=== PATIENT | female | born 1980 | race Caucasian/White ===

== ENCOUNTER → 2022-11-10 09:45 | Outpatient (CLI) | payer OTHER, SELFPAY ==
--- NOTE | ~2022-11-10 | MM_ITS ---
EXAMINATION: MM screening carie BI w chuy HISTORY: Screening mammogram TECHNIQUE: Craniocaudal and mediolateral oblique 3-D tomosynthesis images were obtained and synthetic 2-D images were generated. CAD analysis was submitted and interpreted. COMPARISON: None, baseline BREAST PARENCHYMAL COMPOSITION: There are scattered areas of fibroglandular density. FINDINGS: RIGHT BREAST: An asymmetry is present in the posterior third outer breast craniocaudal view. LEFT BREAST: There is focal asymmetry in the middle third of the upper-outer quadrant of the breast. IMPRESSION: 1. Bilateral breast findings as above. 2. Additional mammographic views and possible breast ultrasound are recommended to evaluate the descr ibed findings and establish a baseline given that this is the first mammographic examination. BI-RADS Category 0: Incomplete: Needs additional imaging evaluation. Reviewed, dictated and finalized at location A. IMPRESSION: 1. Bilateral breast findings as above. 2. Additional mammographic views and possible breast ultrasound are recommended to evaluate the described findings and establish a baseline given that this is the first mammographic examination. BI-RADS Category 0: Incomplete: Needs additional imaging evaluation.
== END ==
PROVIDERS: PCP Family Medicine; Visit Provider Family Medicine
DX: Z12.31 Encounter for screening mammogram for malignant neoplasm of breast (principal); R92.8 Other abnormal and inconclusive findings on diagnostic imaging of breast
CPT/HCPCS: 77063; 77067

== ENCOUNTER → 2023-04-06 08:47 | Outpatient (CLI) | payer OTHER, SELFPAY ==
--- NOTE | ~2023-04-06 | MMUS_ITS ---
EXAMINATION: MM diagnostic carie BI w chuy, US breast BI limited HISTORY: Follow-up breast asymmetries TECHNIQUE: Additional 3-D tomosynthesis images of the breasts were performed and synthetic 2-D images were generated. CAD analysis was submitted and interpreted. High resolution limited bilateral breast ultrasound was performed. COMPARISON: 11/10/2022 BREAST PARENCHYMAL COMPOSITION: Breast composed of scattered areas of fibroglandular density FINDINGS: MAMMOGRAPHIC FINDINGS: Bilateral breast asymmetries are persistent, although slightly less evident than on prior examination . No discrete mass, suspicious calcifications or architectural distortion are identified. ULTRASOUND: Limited bilateral breast ultrasound: Right breast: At 9:00, 3 cm from the nipple, there is a 6 mm cyst. At 9:00, 7 cm from the nipple ther e is an oval 1 cm hypoechoic mass with parallel orientation, heterogeneous internal echotexture with echogenic hilum, likely benign intramammary lymph node. At 11:00, 2.5 cm from the nipple there is a b enign 7 mm intramammary lymph node. Left breast: At 2:00, 6 cm from the nipple, there is an oval hypoechoic mass with echogenic hilum doris suring 9 mm, likely benign. IMPRESSION: 1. Probable benign bilateral breast masses. 2. Recommend 6 month follow-up diagnostic bilateral mammogram and ultrasound BI-RADS category 3, probably benign findings. Reviewed, dictated and finalized at location B. IMPRESSION: 1. Probable benign bilateral breast masses. 2. Recommend 6 month follow-up diagnostic bilateral mammogram and ultrasound BI-RADS category 3, probably benign findings.
== END ==
PROVIDERS: PCP Family Medicine; Visit Provider Family Medicine
DX: R92.8 Other abnormal and inconclusive findings on diagnostic imaging of breast (principal)
CPT/HCPCS: 76642; 77062; 77066; G0279

== ENCOUNTER 2023-11-23 08:14 | Outpatient (CLI) | payer OTHER, SELFPAY ==
--- NOTE | ~2023-11-23 | MMUS_ITS ---
EXAMINATION: MM diagnostic carie BI w chuy, US breast BI limited HISTORY: Six-month follow-up of probable benign bilateral breast masses reported on 04/06/2023 TECHNIQUE: Bilateral full field MLO, MLO and CC and left spot MLO and CC 3-D tomosynthesis images wer e performed and synthetic 2-D images were generated. CAD analysis was submitted and interpreted. High resolution repeat targeted bilateral breast ultrasound examination was performed. COMPARISON: 04/06/2023 bilateral diagnostic mammogram and bilateral limited breast ultrasound BREAST PARENCHYMAL COMPOSITION: There are scattered areas of fibroglandular density. FINDINGS: MAMMOGRAPHIC FINDINGS: No suspicious mass or architectural distortion, malignant calcification, skin thickening or retractio n or significant new or developing density is detected. ULTRASOUND: Right breast: 9:00 3 cm from nipple: 3.2 x 5.7 x 5.2 mm circumscribed sonolucency consistent with benign cyst 9:00 7 cm from nipple: Well-circumscribed 2.6 x 7.2 x 6.1 mm multi septated cyst without internal va scularity or posterior shadowing, benign in appearance 11:00 2.5 cm from nipple: 4.9 x 4.4 x 7.9 mm multi septated cyst without internal vascularity or post erior shadowing Left breast: 2:00 6 cm from nipple: Well-circumscribed multiseptated cyst measuring 3.4 x 6.8 x 12.9 mm. This pre viously measured 6 x 3.6 x 9 mm on 04/06/2023. Despite interval mildly increased size, this appears be nign. IMPRESSION: 1. Benign findings 2. Routine annual mammographic screening is recommended BI-RADS Category 2: Benign finding(s). Reviewed, dictated and finalized at location B. IMPRESSION: 1. Benign findings 2. Routine annual mammographic screening is recommended BI-RADS Category 2: Benign finding(s).
== END 2023-11-23 08:15 ==
LOC: MICIMG 08:16
PROVIDERS: PCP Family Medicine; Visit Provider Family Medicine
DX: R92.8 Other abnormal and inconclusive findings on diagnostic imaging of breast (principal)
CPT/HCPCS: 76642; 77062; 77066; G0279

== ENCOUNTER 2024-10-08 09:47 | Outpatient (CLI) | payer OTHER, SELFPAY ==
--- NOTE | ~2024-10-08 | MM_ITS ---
EXAMINATION: MM screening carie BI w chuy HISTORY: Screening TECHNIQUE: Craniocaudal and mediolateral oblique 3-D tomosynthesis images were obtained and synthetic 2-D images were generated. CAD analysis was submitted and interpreted. COMPARISON: Comparison to multiple prior studies sequentially, with oldest reviewed study dated 11/2022. BREAST PARENCHYMAL COMPOSITION: Not dense: There are scattered areas of fibroglandular density. FINDINGS: There is a developing asymmetry in the upper outer quadrant of the left breast. The right b reast is stable without evidence for malignancy. IMPRESSION: 1. Developing left breast asymmetry. 2. Additional mammographic views and possible breast ultrasound are recommended. BI-RADS Category 0: Incomplete: Needs additional imaging evaluation. Reviewed, dictated and finalized at location A. IMPRESSION: 1. Developing left breast asymmetry. 2. Additional mammographic views and possible breast ultrasound are recommended . BI-RADS Category 0: Incomplete: Needs additional imaging evaluation.
--- OUTSIDE RECORDS SUMMARY | 2024-10-08 10:43 | XMS_ITS | Data Portability ---
Author Organization [facility] [employer] Main Office Address [address] [place] [address] Assessment Encounter Date Assessment Date Assessment LastModified by Organization Details LastModified Time 12/27/2022 12/27/2022 consider sleep study uses lorazepam up to 15 per month would consider cardiology referral and sleep study pending lab may want to take venlafaxine, paroxetine or fluoxetine [email or web address] Not available 01/05/2023 09:42:07 Plan of Treatment Reminders Order Date Submit Date Provider Last Modified By Organization Details Last Modified Time Details Appointments None recorded. Lab vitamin D, 25-hydroxy, total, serum 2023 024 SOL Not available 4 12:26:19 lipid panel, serum 2023 024 SOL Not available 4 12:26:09 hepatic function panel, serum 2023 024 SOL Not available 4 12:26:13 TSH, serum or plasma 2023 024 SOL Not available 4 12:26:18 glycohemogl obin, total, blood 2023 024 [email or web address] Not available 4 08:21:37 T4, free, serum 2023 024 SOL Not available 4 12:26:17 BMP, serum or plasma 2023 024 SOL Not available 4 12:26:12 thyroid peroxidase (tpo) Ab, serum 2023 024 [email or web address] Not available 4 08:21:37 thyroglobul in Ab, serum 2023 024 [email or web address] Not available 4 08:21:37 iron + total iron-bindin g capacity (TIBC), serum 2023 024 SOL Not available 4 12:26:11 ferritin, serum or plasma 2023 024 SOL Not available 4 12:26:16 CBC w/ auto diff 2023 024 SOL Not available 4 12:26:14 lipid panel, serum 2022 023 SOL Not available 3 10:50:54 hepatic function panel, serum 2022 023 SOL Not available 3 10:50:57 pap, IG + HR HPV 2022 023 SOL Not available 3 09:19:07 BMP, serum or plasma 2022 023 SOL Not available 3 10:50:56 TSH, serum or plasma 2022 023 SOL Not available 3 10:51:00 glycohemogl obin, total, blood 2022 023 [facility] ([facility]), [address] [place], [address], 3 10:38:34 T4, free, serum 2022 023 SOL Not available 3 10:51:00 vitamin D, 25-hydroxy, total, serum 2022 023 SOL Not available 3 10:51:01 iron + total iron-bindin g capacity (TIBC), serum 2022 023 SOL Not available 3 10:50:56 ferritin, serum or plasma 2022 023 SOL Not available 10:50:59 CBC w/ auto diff 2022 023 SOL Not available 10:50:58 Referral None recorded. Procedures None recorded. Surgeries None recorded. Imaging US, breast, bilateral 2023 024 [email or web address] [address] [facility], [address], [place], [address], 4 09:24:59 MAMMO, diagnostic, digital, bilateral 2023 024 [email or web address] [address] [facility], [address], [place], [address], 4 09:24:59 US, abdomen - rule out gallstone *Please call patient to schedule* 2022 023 [email or web address] [address] [facility], [address], [place], [address], 3 08:54:37 MAMMO, diagnostic, digital, bilateral - *Please call patient to schedule* 2022 023 [email or web address] [address] [facility], [address], [place], [address], 3 08:53:52 US, breast, bilateral - *Please call patient to schedule* 2022 023 [email or web address] [address] [facility], [address], [place], [address], 3 08:54:13 Medication Orders None recorded. Patient TargetsNo targets recorded. Patient InstructionsNo instructions recorded. Reason for Referral None Reported. Results Created Date Observation Date Name Description Value Unit Range Abnormal Flag Note LastModifiedBy Organization Detail LastModifiedTime 12/21/1928 1212/23/2021 [facility] 25-OH VIT D, (D2,D 3) vitamin D, 25-oh, total 31 NG/mL 30-100 (Note ) Vitam in D, 25-Hy droxy repor ts jared ntrat ions of two commo n forms , 25-OH D2 and 25-OH D3. 25-OH D3 indic ates both endog enous produ ction and suppl ement ation . 25-OH D2 is an indic ator of exoge nous sourc es such as diet or suppl ement ation . Thera py is based on measu remen t of Total 25-OH D, with level s <20 ng/mL indic ative of Vitam in D defic iency , while level s betwe en 20 ng/mL and 30 ng/mL sugge st insuf ficie ncy. Optim al level s are > or = 30 ng/mL . Vitam in D is fat-s olubl e and there fore inadv erten t or inten leonides l inges tion of exces sivel y high amoun ts could be toxic . Studi es in child horace and adult s sugge st blood level s would need to excee d 150 ng/mL befor e there is any jared rn. Angelina gonsalez MF, Yadira wilder NC, Aneta off-f renettaar i CAMPBELL, et al. Evalu ation , treat ment and preve ntion of vitam in D defic iency : an Endoc rine Socie ty clini robb pract ice guide line. J Clin Endoc rinol Metab . 2011; 96(7) :1911 -30. For addit ional infor melanie marie refer to http: //[email or web address] [email or web address] stDia gnost ics.c om/fa q/FAQ 199 Not Available Not Available 12/23/2021 13:28:09 12/21/19 22 12/23/2021 [facility] 25-OH VIT D, (D2,D 3) vitamin D, 25-oh, D3 31 NG/mL Refer ence range : Not estab lishe d Not Available Not Available 12/23/2021 13:28:09 12/21/19 22 12/23/2021 [facility] 25-OH VIT D, (D2,D 3) vitamin D, 25-oh, D2 <4.0 NG/mL (Note ) Refer ence range : Not estab lishe d This test was devel oped and its shade tical perfo rmanc e belén cteri stics have been deter mined by [employer]. It has not been clear ed or appro chaim by the [place] Food and Drug Admin istra tion. This assay has been valid ated pursu ant to the CLIA regul ation and is used for Clini robb purpo ses. MDF med fusio n [address] [facility] [address] [place] [address] [phone] Braulio dempsey MD See Note 1 Note 1 For addit ional infor melanie marie e refer to http: //[facility] [email or web address] jain.Que stDia gnost ics.c om/fa q/FAQ 199 (This link is being provi ded for infor cari valenzuela/ educjoselyn coyle l purpo ses only. ) Not Available Not Available 12/23/2021 13:28:09 12/21/19 22 12/23/2021 HEMOG LOBIN A1C hemoglobin A1C 5.2 %_of_ total _HGB <5.7 normal For the purpo se of taylor natarajan for the prese nce of diabe chase: <5.7% Consi stent with the absen ce of diabe chase 5.7-6 .4% Consi stent with incre ased risk for diabe chase (pred iabet es) > or =6.5% Consi stent with diabe chase This assay resul t is consi stent with a decre ased risk of diabe chase. Curre ntly, no conse nsus exist s dinorah ponce use of hemog lobin A1c for diagn osis of diabe chase in child horace. Accor ding to Ameri can Diabe chase Assoc iatio n (ADA) guide lines , hemog lobin A1c <7.0% repre sents optim al contr ol in non-p regna nt diabe tic patie nts. Diffe rent metri cs may apply to speci fic patie nt popul ation s. Stand ards of Medic al Care in Diabe chase(A DA). Not Available Not Available 12/23/2021 13:28:08 12/21/19 22 12/23/2021 TSH TSH 1.52 mIU/L normal Refer ence Range > or = 20 Years 0.40- 4.50 Pregn jasen Range s First trime ster 0.26- 2.66 Secon d trime ster 0.55- 2.73 Third trime ster 0.43- 2.91 Not Available [address], [address], 12/23/2021 13:28:07 12/21/19 22 12/23/2021 T4, FREE T4, free 1.0 NG/dL 0.8-1. 8 normal Not Available [address], [address], 12/23/2021 13:28:06 12/21/19 22 12/23/2021 HARRISON TIN ferritin 13 NG/mL 16-232 low Not Available [address], [address], 12/23/2021 13:28:06 12/21/19 22 12/23/2021 CBC (INCL UDES DIFF/ PLT) white blood cell count 8.7 thous and/u L 3.8-10 .8 normal Not Available [address], [address], 12/23/2021 13:28:05 12/21/19 22 12/23/2021 CBC (INCL UDES DIFF/ PLT) red blood cell count 4.69 santino on/uL 3.80-5 .10 normal Not Available [address], [address], 12/23/2021 13:28:05 12/21/19 22 12/23/2021 CBC (INCL UDES DIFF/ PLT) hemoglobin 12.7 g/dL 11.7-1 5.5 normal Not Available [address], [address], 12/23/2021 13:28:05 12/21/19 22 12/23/2021 CBC (INCL UDES DIFF/ PLT) hematocrit 39.9 % 35.0-4 5.0 normal Not Available [address], [address], 12/23/2021 13:28:05 12/21/19 22 12/23/2021 CBC (INCL UDES DIFF/ PLT) MCV 85.1 fL 80.0-1 00.0 normal Not Available [address], [address], 12/23/2021 13:28:05 12/21/19 22 12/23/2021 CBC (INCL UDES DIFF/ PLT) MCH 27.1 pg 27.0-3 3.0 normal Not Available [address], [address], 12/23/2021 13:28:05 12/21/19 22 12/23/2021 CBC (INCL UDES DIFF/ PLT) MCHC 31.8 g/dL 32.0-3 6.0 low Not Available [address], [address], 12/23/2021 13:28:05 12/21/19 22 12/23/2021 CBC (INCL UDES DIFF/ PLT) RDW 13.3 % 11.0-1 5.0 normal Not Available [address], [address], 12/23/2021 13:28:05 12/21/19 22 12/23/2021 CBC (INCL UDES DIFF/ PLT) platelet count 404 thous and/u L 140-40 0 high Not Available [address], [address], 12/23/2021 13:28:05 12/21/19 22 12/23/2021 CBC (INCL UDES DIFF/ PLT) MPV 9.5 fL 7.5-12 .5 normal Not Available [address], [address], 12/23/2021 13:28:05 12/21/19 22 12/23/2021 CBC (INCL UDES DIFF/ PLT) absolute neutrophils 5003 cells /uL 1500-7 800 normal Not Available [address], [address], 12/23/2021 13:28:05 12/21/19 22 12/23/2021 CBC (INCL UDES DIFF/ PLT) absolute lymphocytes 2932 cells /uL 850-39 00 normal Not Available [address], [address], 12/23/2021 13:28:05 12/21/19 22 12/23/2021 CBC (INCL UDES DIFF/ PLT) absolute monocytes 626 cells /uL 200-95 0 normal Not Available [address], [address], 12/23/2021 13:28:05 12/21/19 22 12/23/2021 CBC (INCL UDES DIFF/ PLT) absolute eosinophils 78 cells /uL 15-500 normal Not Available [address], [address], 12/23/2021 13:28:05 12/21/19 22 12/23/2021 CBC (INCL UDES DIFF/ PLT) absolute basophils 61 cells /uL 0-200 normal Not Available [address], [address], 12/23/2021 13:28:05 12/21/19 22 12/23/2021 CBC (INCL UDES DIFF/ PLT) neutrophils 57.5 % normal Not Available [address], [address], 12/23/2021 13:28:05 12/21/19 22 12/23/2021 CBC (INCL UDES DIFF/ PLT) lymphocytes 33.7 % normal Not Available [address], [address], 12/23/2021 13:28:05 12/21/19 22 12/23/2021 CBC (INCL UDES DIFF/ PLT) monocytes 7.2 % normal Not Available [address], [address], 12/23/2021 13:28:05 12/21/19 22 12/23/2021 CBC (INCL UDES DIFF/ PLT) eosinophils 0.9 % normal Not Available [address], [address], 12/23/2021 13:28:05 12/21/19 22 12/23/2021 CBC (INCL UDES DIFF/ PLT) basophils 0.7 % normal Not Available [address], [address], 12/23/2021 13:28:05 12/21/19 22 12/23/2021 HEPAT IC FUNCT ION PANEL protein, total 7.0 g/dL 6.1-8. 1 normal Not Available [address], [address], 12/23/2021 13:28:04 12/21/19 22 12/23/2021 HEPAT IC FUNCT ION PANEL albumin 4.2 g/dL 3.6-5. 1 normal Not Available [address], [address], 12/23/2021 13:28:04 12/21/19 22 12/23/2021 HEPAT IC FUNCT ION PANEL globulin 2.8 g/dL_ (calc ) 1.9-3. 7 normal Not Available [address], [address], 12/23/2021 13:28:04 12/21/19 22 12/23/2021 HEPAT IC FUNCT ION PANEL albumin/glob ulin ratio 1.5 (calc ) 1.0-2. 5 normal Not Available [address], [address], 12/23/2021 13:28:04 12/21/19 22 12/23/2021 HEPAT IC FUNCT ION PANEL bilirubin, total 0.4 mg/dL 0.2-1. 2 normal Not Available [address] [address] [place], [address], 12/23/2021 13:28:04 12/21/19 22 12/23/2021 HEPAT IC FUNCT ION PANEL bilirubin, direct 0.1 mg/dL < or = 0.2 normal Not Available [address], [address], 12/23/2021 13:28:04 12/21/19 22 12/23/2021 HEPAT IC FUNCT ION PANEL bilirubin, indirect 0.3 mg/dL _(robb c) 0.2-1. 2 normal Not Available [address], [address], 12/23/2021 13:28:04 12/21/19 22 12/23/2021 HEPAT IC FUNCT ION PANEL alkaline phosphatase 80 U/L 31-125 normal Not Available [address] [address] [place], [address], 12/23/2021 13:28:04 12/21/19 22 12/23/2021 HEPAT IC FUNCT ION PANEL AST 24 U/L 10-30 normal Not Available [address], [address], 12/23/2021 13:28:04 12/21/19 22 12/23/2021 HEPAT IC FUNCT ION PANEL ALT 22 U/L 6-29 normal Not Available [address], [address], 12/23/2021 13:28:04 12/21/19 22 12/23/2021 BASIC METAB OLIC PANEL glucose 85 mg/dL 65-99 normal Fasti ng refer ence inter moise Not Available [address], [address], 12/23/2021 13:28:04 12/21/19 22 12/23/2021 BASIC METAB OLIC PANEL urea nitrogen (BUN) 8 mg/dL 7-25 normal Not Available [address], [address], 12/23/2021 13:28:04 12/21/19 22 12/23/2021 BASIC METAB OLIC PANEL creatinine 0.70 mg/dL 0.50-1 .10 normal Not Available [address], [address], 12/23/2021 13:28:04 12/21/19 22 12/23/2021 BASIC METAB OLIC PANEL eGFR non-afr. hungarian 107 mL/mi n/1.7 3m2 > or = 60 normal Not Available [address], [address], 12/23/2021 13:28:04 12/21/19 22 12/23/2021 BASIC METAB OLIC PANEL eGFR 124 mL/mi n/1.7 3m2 > or = 60 normal Not Available [address], [address], 12/23/2021 13:28:04 12/21/19 22 12/23/2021 BASIC METAB OLIC PANEL BUN/creatini ne ratio not applic able (calc ) 6-22 Not Available [address], [address], 12/23/2021 13:28:04 12/21/19 22 12/23/2021 BASIC METAB OLIC PANEL sodium 137 mmol/ L 135-14 6 normal Not Available [address], [address], 12/23/2021 13:28:04 12/21/19 22 12/23/2021 BASIC METAB OLIC PANEL potassium 4.7 mmol/ L 3.5-5. 3 normal Not Available [address], [address], 12/23/2021 13:28:04 12/21/19 22 12/23/2021 BASIC METAB OLIC PANEL chloride 106 mmol/ L 98-110 normal Not Available [address], [address], 12/23/2021 13:28:04 12/21/19 22 12/23/2021 BASIC METAB OLIC PANEL carbon dioxide 27 mmol/ L 20-32 normal Not Available [address], [address], 12/23/2021 13:28:04 12/21/19 22 12/23/2021 BASIC METAB OLIC PANEL calcium 9.7 mg/dL 8.6-10 .2 normal Not Available [address], [address], 12/23/2021 13:28:04 12/21/19 22 12/23/2021 IRON AND TOTAL IRON MADYSON NG CAPAC ITY iron, total 55 mcg/d L 40-190 normal Not Available [address], [address], 12/23/2021 13:28:03 12/21/19 22 12/23/2021 IRON AND TOTAL IRON MADYSON NG CAPAC ITY iron binding capacity 348 mcg/d L_(ca lc) 250-45 0 normal Not Available [address], [address], 12/23/2021 13:28:03 12/21/19 22 12/23/2021 IRON AND TOTAL IRON MADYSON NG CAPAC ITY % saturation 16 %_(ca lc) 16-45 normal Not Available [address], [address], 12/23/2021 13:28:03 12/21/19 22 12/23/2021 LIPID PANEL , STAND GAYLE cholesterol, total 170 mg/dL <200 normal Not Available [address], [address], 12/23/2021 13:28:02 12/21/19 22 12/23/2021 LIPID PANEL , STAND GAYLE HDL cholesterol 58 mg/dL > or = 50 normal Not Available [address], [address], 12/23/2021 13:28:02 12/21/19 22 12/23/2021 LIPID PANEL , STAND GAYLE triglyceride s 166 mg/dL <150 high Not Available [address], [address], 12/23/2021 13:28:02 12/21/19 22 12/23/2021 LIPID PANEL , STAND GAYLE LDL-choleste rol 86 mg/dL _(robb c) normal Refer ence range : <100 Steven able range <100 mg/dL for prima ry preve ntion ; <70 mg/dL for patie nts with CHD or diabe tic patie nts with > or = 2 CHD risk facto rs. LDL-C is now calcu lated using the Missy n-Hop kins calcu thai n, which is a valid ated novel lilli connell than the Fried carmen equat ion in the estim ation of LDL-C . Missy jain SS et al. MARIA E. 2013; 310(1 9): 2061- 2068 (http ://ed ucati on.Qu estDi agnos tics. com/f aq/FA Q164) Not Available [address] [place], [address], 12/23/2021 13:28:02 12/21/19 22 12/23/2021 LIPID PANEL , STAND GAYLE chol/HDLC ratio 2.9 (calc ) <5.0 normal Not Available [address] [address] [place], [address], 12/23/2021 13:28:02 12/21/19 22 12/23/2021 LIPID PANEL , STAND GAYLE non HDL cholesterol 112 mg/dL _(robb c) <130 normal For patie nts with diabe chase plus 1 major ASCVD risk facto r, treat ing to a non-H DL-C goal of <100 mg/dL (LDL- C of <70 mg/dL ) is jair sanatna optio n. Not Available [address], [address], 12/23/2021 13:28:02 12/28/19 23 12/28/2022 LIPID PANEL , STAND GAYLE cholesterol, total 160 mg/dL <200 normal Not Available [address] [place], [address], 12/28/2022 10:50:54 12/28/19 23 12/28/2022 LIPID PANEL , STAND GAYLE HDL cholesterol 51 mg/dL > or = 50 normal Not Available [address], [address], 12/28/2022 10:50:54 12/28/19 23 12/28/2022 LIPID PANEL , STAND GAYLE triglyceride s 170 mg/dL <150 high Not Available [address], [address], 12/28/2022 10:50:54 12/28/19 23 12/28/2022 LIPID PANEL , STAND GAYLE LDL-choleste rol 82 mg/dL _(robb c) normal Refer ence range : <100 Steven able range <100 mg/dL for prima ry preve ntion ; <70 mg/dL for patie nts with CHD or diabe tic patie nts with > or = 2 CHD risk facto rs. LDL-C is now calcu lated using the Missy n-Hop kins calcu tyeshaguero n, which is a valid ated novel metho d provi ding steven r accur acy than the Fried carmen equat ion in the estim ation of LDL-C . Missy jain SS et al. MARIA E. 2013; 310(1 9): 2061- 2068 (http ://ed ucati on.Qu estSportsCstr. com/f aq/FA Q164) Not Available [employer] [address] [address] [place], [address], 12/28/2022 10:50:54 12/28/19 23 12/28/2022 LIPID PANEL , STAND GAYLE chol/HDLC ratio 3.1 (calc ) <5.0 normal Not Available [employer] [address] [address] [place], [address], 12/28/2022 10:50:54 12/28/19 23 12/28/2022 LIPID PANEL , STAND GAYLE non HDL cholesterol 109 mg/dL _(robb c) <130 normal For patie nts with diabe chase plus 1 major ASCVD risk facto r, treat ing to a non-H DL-C goal of <100 mg/dL (LDL- C of <70 mg/dL ) is consi abelino a thera pediaz c optio n. Not Available [employer] [address] [address] [place], [address], 12/28/2022 10:50:54 12/28/19 23 12/28/2022 IRON AND TOTAL IRON MADYSON NG CAPAC ITY iron, total 56 mcg/d L 40-190 normal Not Available [employer] [address] [address] [place], [address], 12/28/2022 10:50:56 12/28/19 23 12/28/2022 IRON AND TOTAL IRON MADYSON NG CAPAC ITY iron binding capacity 358 mcg/d L_(ca lc) 250-45 0 normal Not Available [address], [address], 12/28/2022 10:50:56 12/28/19 23 12/28/2022 IRON AND TOTAL IRON MADYSON NG CAPAC ITY % saturation 16 %_(ca lc) 16-45 normal Not Available [address], [address], 12/28/2022 10:50:56 12/28/19 23 12/28/2022 BASIC METAB OLIC PANEL glucose 81 mg/dL 65-99 normal Fasti ng refer ence inter moise Not Available [address], [address], 12/28/2022 10:50:56 12/28/19 23 12/28/2022 BASIC METAB OLIC PANEL urea nitrogen (BUN) 8 mg/dL 7-25 normal Not Available [address], [address], 12/28/2022 10:50:56 12/28/19 23 12/28/2022 BASIC METAB OLIC PANEL creatinine 0.70 mg/dL 0.50-0 .99 normal Not Available [address], [address], 12/28/2022 10:50:56 12/28/19 23 12/28/2022 BASIC METAB OLIC PANEL eGFR 110 mL/mi n/1.7 3m2 > or = 60 normal The eGFR is based on the CKD-E PI 2020 equat ion. To calcu late the new eGFR from a previ ous Creat inine or Cysta esdras C resul t, go to https ://kike chamorro.o jonathan/charlene youngblood s/ kdoqi /gfr% 5Fcal culat or Not Available [address], [address], 12/28/2022 10:50:56 12/28/19 23 12/28/2022 BASIC METAB OLIC PANEL BUN/creatini ne ratio NOT APPLIC ABLE (calc ) 6-22 Not Available [address], [address], 12/28/2022 10:50:56 12/28/19 23 12/28/2022 BASIC METAB OLIC PANEL sodium 138 mmol/ L 135-14 6 normal Not Available [address], [address], 12/28/2022 10:50:56 12/28/19 23 12/28/2022 BASIC METAB OLIC PANEL potassium 4.6 mmol/ L 3.5-5. 3 normal Not Available [address], [address], 12/28/2022 10:50:56 12/28/19 23 12/28/2022 BASIC METAB OLIC PANEL chloride 102 mmol/ L 98-110 normal Not Available [address], [address], 12/28/2022 10:50:56 12/28/19 23 12/28/2022 BASIC METAB OLIC PANEL carbon dioxide 28 mmol/ L 20-32 normal Not Available [address], [address], 12/28/2022 10:50:56 12/28/19 23 12/28/2022 BASIC METAB OLIC PANEL calcium 9.7 mg/dL 8.6-10 .2 normal Not Available [address], [address], 12/28/2022 10:50:56 12/28/19 23 12/28/2022 HEPAT IC FUNCT ION PANEL protein, total 7.6 g/dL 6.1-8. 1 normal Not Available [address], [address], 12/28/2022 10:50:57 12/28/19 23 12/28/2022 HEPAT IC FUNCT ION PANEL albumin 4.5 g/dL 3.6-5. 1 normal Not Available [address], [address], 12/28/2022 10:50:57 12/28/19 23 12/28/2022 HEPAT IC FUNCT ION PANEL globulin 3.1 g/dL_ (calc ) 1.9-3. 7 normal Not Available [address], [address], 12/28/2022 10:50:57 12/28/19 23 12/28/2022 HEPAT IC FUNCT ION PANEL albumin/glob ulin ratio 1.5 (calc ) 1.0-2. 5 normal Not Available [address], [address], 12/28/2022 10:50:57 12/28/19 23 12/28/2022 HEPAT IC FUNCT ION PANEL bilirubin, total 0.5 mg/dL 0.2-1. 2 normal Not Available [address], [address], 12/28/2022 10:50:57 12/28/19 23 12/28/2022 HEPAT IC FUNCT ION PANEL bilirubin, direct 0.1 mg/dL < or = 0.2 normal Not Available [address], [address], 12/28/2022 10:50:57 12/28/19 23 12/28/2022 HEPAT IC FUNCT ION PANEL bilirubin, indirect 0.4 mg/dL _(robb c) 0.2-1. 2 normal Not Available [address], [address], 12/28/2022 10:50:57 12/28/19 23 12/28/2022 HEPAT IC FUNCT ION PANEL alkaline phosphatase 78 U/L 31-125 normal Not Available [facility] [employer] [address] [address] [place], [address], 12/28/2022 10:50:57 12/28/19 23 12/28/2022 HEPAT IC FUNCT ION PANEL AST 23 U/L 10-30 normal Not Available [address], [address], 12/28/2022 10:50:57 12/28/19 23 12/28/2022 HEPAT IC FUNCT ION PANEL ALT 21 U/L 6-29 normal Not Available [address], [address], 12/28/2022 10:50:57 12/28/19 23 12/28/2022 CBC (INCL UDES DIFF/ PLT) white blood cell count 9.6 thous and/u L 3.8-10 .8 normal Not Available [address], [address], 12/28/2022 10:50:58 12/28/19 23 12/28/2022 CBC (INCL UDES DIFF/ PLT) red blood cell count 4.97 santino on/uL 3.80-5 .10 normal Not Available [address], [address], 12/28/2022 10:50:58 12/28/19 23 12/28/2022 CBC (INCL UDES DIFF/ PLT) hemoglobin 13.7 g/dL 11.7-1 5.5 normal Not Available [address], [address], 12/28/2022 10:50:58 12/28/19 23 12/28/2022 CBC (INCL UDES DIFF/ PLT) hematocrit 41.7 % 35.0-4 5.0 normal Not Available [employer] [address], [address], 12/28/2022 10:50:58 12/28/19 23 12/28/2022 CBC (INCL UDES DIFF/ PLT) MCV 83.9 fL 80.0-1 00.0 normal Not Available [address], [address], 12/28/2022 10:50:58 12/28/19 23 12/28/2022 CBC (INCL UDES DIFF/ PLT) MCH 27.6 pg 27.0-3 3.0 normal Not Available [address], [address], 12/28/2022 10:50:58 12/28/19 23 12/28/2022 CBC (INCL UDES DIFF/ PLT) MCHC 32.9 g/dL 32.0-3 6.0 normal Not Available [address], [address], 12/28/2022 10:50:58 12/28/19 23 12/28/2022 CBC (INCL UDES DIFF/ PLT) RDW 13.0 % 11.0-1 5.0 normal Not Available [address], [address], 12/28/2022 10:50:58 12/28/19 23 12/28/2022 CBC (INCL UDES DIFF/ PLT) platelet count 434 thous and/u L 140-40 0 high Not Available [address], [address], 12/28/2022 10:50:58 12/28/19 23 12/28/2022 CBC (INCL UDES DIFF/ PLT) MPV 9.5 fL 7.5-12 .5 normal Not Available [address], [address], 12/28/2022 10:50:58 12/28/19 23 12/28/2022 CBC (INCL UDES DIFF/ PLT) absolute neutrophils 6240 cells /uL 1500-7 800 normal Not Available [address], [address], 12/28/2022 10:50:58 12/28/19 23 12/28/2022 CBC (INCL UDES DIFF/ PLT) absolute lymphocytes 2650 cells /uL 850-39 00 normal Not Available [address] [place], [address], 12/28/2022 10:50:58 12/28/19 23 12/28/2022 CBC (INCL UDES DIFF/ PLT) absolute monocytes 605 cells /uL 200-95 0 normal Not Available [address], [address], 12/28/2022 10:50:58 12/28/19 23 12/28/2022 CBC (INCL UDES DIFF/ PLT) absolute eosinophils 48 cells /uL 15-500 normal Not Available [address], [address], 12/28/2022 10:50:58 12/28/19 23 12/28/2022 CBC (INCL UDES DIFF/ PLT) absolute basophils 58 cells /uL 0-200 normal Not Available [address], [address], 12/28/2022 10:50:58 12/28/19 23 12/28/2022 CBC (INCL UDES DIFF/ PLT) neutrophils 65 % normal Not Available [address], [address], 12/28/2022 10:50:58 12/28/19 23 12/28/2022 CBC (INCL UDES DIFF/ PLT) lymphocytes 27.6 % normal Not Available [address] [place], [address], 12/28/2022 10:50:58 12/28/19 23 12/28/2022 CBC (INCL UDES DIFF/ PLT) monocytes 6.3 % normal Not Available [address], [address], 12/28/2022 10:50:58 12/28/19 23 12/28/2022 CBC (INCL UDES DIFF/ PLT) eosinophils 0.5 % normal Not Available [address], [address], 12/28/2022 10:50:58 12/28/19 23 12/28/2022 CBC (INCL UDES DIFF/ PLT) basophils 0.6 % normal Not Available [address], [address], 12/28/2022 10:50:58 12/28/19 23 12/28/2022 HARRISON TIN ferritin 12 NG/mL 16-232 low Not Available [address], [address], 12/28/2022 10:50:59 12/28/19 23 12/28/2022 T4, FREE T4, free 1.0 NG/dL 0.8-1. 8 normal Not Available [address], [address], 12/28/2022 10:51:00 12/28/19 23 12/28/2022 TSH TSH 1.18 mIU/L normal Refer ence Range > or = 20 Years 0.40- 4.50 Pregn jasen Range s First trime ster 0.26- 2.66 Secon d trime ster 0.55- 2.73 Third trime ster 0.43- 2.91 Not Available [address], [address], 12/28/2022 10:51:00 12/28/19 23 12/28/2022 VITAM IN D,25- OH,TO COOPER,I A vitamin D,25-oh,tota l,ia 32 NG/mL 30-100 normal Vitam in D Statu s 25-OH Vitam in D: Defic iency : <20 ng/mL Insuf ficie ncy: 20 - 29 ng/mL Optim al: > or = 30 ng/mL For 25-OH Vitam in D testi ng on patie nts on D2-moffett pplem entat ion and patie nts for whom quant itati on of D2 and D3 fract ions is requi red, the [facility] Assur eD(TM ) 25-OH VIT D, (D2,D 3), LC/MS /MS is recom shirley d: order code 97650 (flip ents >2yrs ). See Note 1 Note 1 For addit ional infor melanie marie e refer to http: //[facility] farzana Uriarte stDia gnost ics.c om/fa q/FAQ 199 (This link is being provi ded for infor cari valenzuela/ educjoselyn schneider purpo ses only. ) Not Available [facility] [address] [place], [address], 12/28/2022 10:51:01 12/28/19 23 12/28/2022 HEMOG LOBIN A1C hemoglobin A1C 5.0 %_of_ total _HGB <5.7 normal For the purpo se of taylor natarajan for the prese nce of diabe chase: <5.7% Consi stent with the absen ce of diabe chase 5.7-6 .4% Consi stent with incre ased risk for diabe chase (pred iabet es) > or =6.5% Consi stent with diabe chase This assay resul t is consi stent with a decre ased risk of diabe chase. Curre ntly, no conse nsus exist s idnorah ponce use of hemog lobin A1c for diagn osis of diabe chase in child horace. Accor ding to Ameri can Diabe chase Assoc iatio n (ADA) guide lines , hemog lobin A1c <7.0% repre sents optim al contr ol in non-p regna nt diabe tic patie nts. Diffe rent metri cs may apply to speci fic patie nt popul ation s. Stand ards of Medic al Care in Diabe chase(A DA). Not Available [facility] (Lab) [address] [place], [address], 12/28/2022 10:51:02 10/19/19 24 10/22/2023 LIPID PANEL , STAND GAYLE cholesterol, total 168 mg/dL <200 normal Not Available [employer] [address] [address] [place], [address], 10/22/2023 12:26:09 10/19/19 24 10/22/2023 LIPID PANEL , STAND GAYLE HDL cholesterol 52 mg/dL > or = 50 normal Not Available [employer] [address] [address] [place], [address], 10/22/2023 12:26:09 10/19/19 24 10/22/2023 LIPID PANEL , STAND GAYLE triglyceride s 114 mg/dL <150 normal Not Available [facility] [address] [address] [place], [address], 10/22/2023 12:26:09 10/19/19 24 10/22/2023 LIPID PANEL , STAND GAYLE LDL-choleste rol 95 mg/dL _(robb c) normal Refer ence range : <100 Steven able range <100 mg/dL for prima ry preve ntion ; <70 mg/dL for patie nts with CHD or diabe tic patie nts with > or = 2 CHD risk facto rs. LDL-C is now calcu lated using the Missy n-Hop kins calcu thai n, which is a valid ated novel metho d provi rosario sandste r accur acy than the Fried carmen equat ion in the estim ation of LDL-C . Missy jain SS et al. MARIA E. 2013; 310(1 9): 2061- 2068 (http ://ed ucati on.Qu estDi Cuponzotes. com/f aq/FA Q164) Not Available [employer] [facility] [address] [place], [address], 10/22/2023 12:26:09 10/19/19 24 10/22/2023 LIPID PANEL , STAND GAYLE chol/HDLC ratio 3.2 (calc ) <5.0 normal Not Available [address], [address], 10/22/2023 12:26:09 10/19/19 24 10/22/2023 LIPID PANEL , STAND GAYLE non HDL cholesterol 116 mg/dL _(robb c) <130 normal For patie nts with diabe chase plus 1 major ASCVD risk facto r, treat ing to a non-H DL-C goal of <100 mg/dL (LDL- C of <70 mg/dL ) is consene santana optio n. Not Available [address] [place], [address], 10/22/2023 12:26:09 10/19/19 24 10/22/2023 THYRO ID PEROX IDASE AND THYRO GLOBU JEWELL ANTIB ODIES thyroglobuli n antibodies <1 IU/mL < or = 1 Not Available [address] [address] [place], [address], 10/22/2023 12:26:10 10/19/19 24 10/22/2023 THYRO ID PEROX IDASE AND THYRO GLOBU JEWELL ANTIB ODIES thyroid peroxidase antibodies <1 IU/mL <9 Not Available [address] [address] [place], [address], 10/22/2023 12:26:10 10/19/19 24 10/22/2023 IRON AND TOTAL IRON MADYSON NG CAPAC ITY iron, total 73 mcg/d L 40-190 normal Not Available [address], [address], 10/22/2023 12:26:11 10/19/19 24 10/22/2023 IRON AND TOTAL IRON MADYSON NG CAPAC ITY iron binding capacity 331 mcg/d L_(ca lc) 250-45 0 normal Not Available [address], [address], 10/22/2023 12:26:11 10/19/19 24 10/22/2023 IRON AND TOTAL IRON MADYSON NG CAPAC ITY % saturation 22 %_(ca lc) 16-45 normal Not Available [address], [address], 10/22/2023 12:26:11 10/19/19 24 10/22/2023 BASIC METAB OLIC PANEL glucose 86 mg/dL 65-99 normal Fasti ng refer ence inter moise Not Available [address], [address], 10/22/2023 12:26:12 10/19/19 24 10/22/2023 BASIC METAB OLIC PANEL urea nitrogen (BUN) 11 mg/dL 7-25 normal Not Available [address], [address], 10/22/2023 12:26:12 10/19/19 24 10/22/2023 BASIC METAB OLIC PANEL creatinine 0.60 mg/dL 0.50-0 .99 normal Not Available [address], [address], 10/22/2023 12:26:12 10/19/19 24 10/22/2023 BASIC METAB OLIC PANEL eGFR 113 mL/mi n/1.7 3m2 > or = 60 normal Not Available [address], [address], 10/22/2023 12:26:12 10/19/19 24 10/22/2023 BASIC METAB OLIC PANEL BUN/creatini ne ratio SEE NOTE: (calc ) 6-22 Not Repor jimbo: BUN and Creat inine are withi n refer ence range . Not Available [address], [address], 10/22/2023 12:26:12 10/19/19 24 10/22/2023 BASIC METAB OLIC PANEL sodium 137 mmol/ L 135-14 6 normal Not Available [address], [address], 10/22/2023 12:26:12 10/19/19 24 10/22/2023 BASIC METAB OLIC PANEL potassium 4.6 mmol/ L 3.5-5. 3 normal Not Available [address], [address], 10/22/2023 12:26:12 10/19/19 24 10/22/2023 BASIC METAB OLIC PANEL chloride 104 mmol/ L 98-110 normal Not Available [address], [address], 10/22/2023 12:26:12 10/19/19 24 10/22/2023 BASIC METAB OLIC PANEL carbon dioxide 27 mmol/ L 20-32 normal Not Available [address], [address], 10/22/2023 12:26:12 10/19/19 24 10/22/2023 BASIC METAB OLIC PANEL calcium 9.5 mg/dL 8.6-10 .2 normal Not Available [address], [address], 10/22/2023 12:26:12 10/19/19 24 10/22/2023 HEPAT IC FUNCT ION PANEL protein, total 7.3 g/dL 6.1-8. 1 normal Not Available [address], [address], 10/22/2023 12:26:13 10/19/19 24 10/22/2023 HEPAT IC FUNCT ION PANEL albumin 4.5 g/dL 3.6-5. 1 normal Not Available [address], [address], 10/22/2023 12:26:13 10/19/19 24 10/22/2023 HEPAT IC FUNCT ION PANEL globulin 2.8 g/dL_ (calc ) 1.9-3. 7 normal Not Available [address], [address], 10/22/2023 12:26:13 10/19/19 24 10/22/2023 HEPAT IC FUNCT ION PANEL albumin/glob ulin ratio 1.6 (calc ) 1.0-2. 5 normal Not Available [address], [address], 10/22/2023 12:26:13 10/19/19 24 10/22/2023 HEPAT IC FUNCT ION PANEL bilirubin, total 0.5 mg/dL 0.2-1. 2 normal Not Available [address], [address], 10/22/2023 12:26:13 10/19/19 24 10/22/2023 HEPAT IC FUNCT ION PANEL bilirubin, direct 0.1 mg/dL < or = 0.2 normal Not Available [address], [address], 10/22/2023 12:26:13 10/19/19 24 10/22/2023 HEPAT IC FUNCT ION PANEL bilirubin, indirect 0.4 mg/dL _(robb c) 0.2-1. 2 normal Not Available [address], [address], 10/22/2023 12:26:13 10/19/19 24 10/22/2023 HEPAT IC FUNCT ION PANEL alkaline phosphatase 77 U/L 31-125 normal Not Available [facility] [employer] [address], [address], 10/22/2023 12:26:13 10/19/19 24 10/22/2023 HEPAT IC FUNCT ION PANEL AST 21 U/L 10-30 normal Not Available [address], [address], 10/22/2023 12:26:13 10/19/19 24 10/22/2023 HEPAT IC FUNCT ION PANEL ALT 20 U/L 6-29 normal Not Available [address], [address], 10/22/2023 12:26:13 10/19/19 24 10/22/2023 CBC (INCL UDES DIFF/ PLT) white blood cell count 7.8 thous and/u L 3.8-10 .8 normal Not Available [address], [address], 10/22/2023 12:26:14 10/19/19 24 10/22/2023 CBC (INCL UDES DIFF/ PLT) red blood cell count 4.78 santino on/uL 3.80-5 .10 normal Not Available [address], [address], 10/22/2023 12:26:14 10/19/19 24 10/22/2023 CBC (INCL UDES DIFF/ PLT) hemoglobin 13.2 g/dL 11.7-1 5.5 normal Not Available [address], [address], 10/22/2023 12:26:14 10/19/19 24 10/22/2023 CBC (INCL UDES DIFF/ PLT) hematocrit 41.1 % 35.0-4 5.0 normal Not Available [address], [address], 10/22/2023 12:26:14 10/19/19 24 10/22/2023 CBC (INCL UDES DIFF/ PLT) MCV 86.0 fL 80.0-1 00.0 normal Not Available [address], [address], 10/22/2023 12:26:14 10/19/19 24 10/22/2023 CBC (INCL UDES DIFF/ PLT) MCH 27.6 pg 27.0-3 3.0 normal Not Available [address], [address], 10/22/2023 12:26:14 10/19/19 24 10/22/2023 CBC (INCL UDES DIFF/ PLT) MCHC 32.1 g/dL 32.0-3 6.0 normal Not Available [address], [address], 10/22/2023 12:26:14 10/19/19 24 10/22/2023 CBC (INCL UDES DIFF/ PLT) RDW 12.6 % 11.0-1 5.0 normal Not Available [address], [address], 10/22/2023 12:26:14 10/19/19 24 10/22/2023 CBC (INCL UDES DIFF/ PLT) platelet count 401 thous and/u L 140-40 0 high Not Available [address], [address], 10/22/2023 12:26:14 10/19/19 24 10/22/2023 CBC (INCL UDES DIFF/ PLT) MPV 9.4 fL 7.5-12 .5 normal Not Available [address], [address], 10/22/2023 12:26:14 10/19/19 24 10/22/2023 CBC (INCL UDES DIFF/ PLT) absolute neutrophils 4828 cells /uL 1500-7 800 normal Not Available [address], [address], 10/22/2023 12:26:14 10/19/19 24 10/22/2023 CBC (INCL UDES DIFF/ PLT) absolute lymphocytes 2379 cells /uL 850-39 00 normal Not Available [address], [address], 10/22/2023 12:26:14 10/19/19 24 10/22/2023 CBC (INCL UDES DIFF/ PLT) absolute monocytes 468 cells /uL 200-95 0 normal Not Available [address], [address], 10/22/2023 12:26:14 10/19/19 24 10/22/2023 CBC (INCL UDES DIFF/ PLT) absolute eosinophils 78 cells /uL 15-500 normal Not Available [address], [address], 10/22/2023 12:26:14 10/19/19 24 10/22/2023 CBC (INCL UDES DIFF/ PLT) absolute basophils 47 cells /uL 0-200 normal Not Available [address], [address], 10/22/2023 12:26:14 10/19/19 24 10/22/2023 CBC (INCL UDES DIFF/ PLT) neutrophils 61.9 % normal Not Available [address], [address], 10/22/2023 12:26:14 10/19/19 24 10/22/2023 CBC (INCL UDES DIFF/ PLT) lymphocytes 30.5 % normal Not Available [address], [address], 10/22/2023 12:26:14 10/19/19 24 10/22/2023 CBC (INCL UDES DIFF/ PLT) monocytes 6.0 % normal Not Available [address], [address], 10/22/2023 12:26:14 10/19/19 24 10/22/2023 CBC (INCL UDES DIFF/ PLT) eosinophils 1.0 % normal Not Available [address], [address], 10/22/2023 12:26:14 10/19/19 24 10/22/2023 CBC (INCL UDES DIFF/ PLT) basophils 0.6 % normal Not Available [facility] [address], [address], 10/22/2023 12:26:14 10/19/19 24 10/22/2023 HARRISON TIN ferritin 20 NG/mL 16-232 normal Not Available [facility] [address], [address], 10/22/2023 12:26:16 10/19/19 24 10/22/2023 T4, FREE T4, free 0.9 NG/dL 0.8-1. 8 normal Not Available [address], [address], 10/22/2023 12:26:17 10/19/1910/22/2023 TSH TSH 0.94 mIU/L normal Refer ence Range > or = 20 Years 0.40- 4.50 Pregn jasen Range s First trime ster 0.26- 2.66 Secon d trime ster 0.55- 2.73 Third trime ster 0.43- 2.91 Not Available [address], [address], 10/22/2023 12:26:18 10/19/1910/22/2023 VITAM IN D,25- OH,TO COOPER,I A vitamin D,25-oh,tota l,ia 28 NG/mL 30-100 low Vitam in D Statu s 25-OH Vitam in D: Defic iency : <20 ng/mL Insuf ficie ncy: 20 - 29 ng/mL Optim al: > or = 30 ng/mL For 25-OH Vitam in D testi ng on patie nts on D2-moffett pplem entat ion and patie nts for whom quant itati on of D2 and D3 fract ions is requi red, the [facility] Assur eD(TM ) 25-OH VIT D, (D2,D 3), LC/MS /MS is recom shirley d: order code 93796 (flip ents >2yrs ). See Note 1 Note 1 For addit ional infor melanie marie refer to http: //[facility] farzana Uriarte stDia gnost ics.c om/fa q/FAQ 199 (This link is being provi ded for infor cari valenzuela/ educa leonides l purpo ses only. ) Not Available [employer] [facility] [address] [address] , [place], [address], 10/22/2023 12:26:19 10/19/19 24 10/22/2023 HEMOG LOBIN A1C hemoglobin A1C 5.4 %_of_ total _HGB <5.7 normal For the purpo se of screrubin polancog for the prese nce of diabe chase: <5.7% Consi stent with the absen ce of diabe chase 5.7-6 .4% Consi stent with incre ased risk for diabe chase (pred iabet es) > or =6.5% Consi stent with diabe chase This assay resul t is consi stent with a decre ased risk of diabe chase. Curre ntly, no conse nsus exist salma ponce use of hemog lobin A1c for diagn osis of diabe chase in child horace. Accor rosario to Ameri can Diabe chase Assoc iatio n (ADA) guide lines , hemog lobin A1c <7.0% repre sents optim al contr ol in non-p regna nt diabe tic patie nts. Diffe rent metri cs may apply to speci fic patie nt popul ation s. Stand ards of Medic al Care in Diabe chase(A DA). This test was perfo rmed on the Rip jayna c503 platf orm. Effec tive , joselyn conklin in test platf orms from the [facility] Archi tect to the Rip jayna c503 may have shift ed HbA1c resul ts severo red to histo rical resul ts. Based on labor atory valid ation testi ng condu [facility]ted at [facility] , the Rip platf orm relat [place] to the [facility]bot t platf orm had an avera ge incre ase in HbA1c value of < or = 0.3%. This diffe rence is withi n accep jimbo varia bilit y estab lishe d by the Natio nal [employer] hemog lobin Stand ardiz ation Progr am. Note that not all indiv idual s will have had a shift in their resul ts and direc t severo rison s betwe en histo rical and curre nt resul ts for testi ng condu cted on diffe rent platf orms is not recom shirley d. Not Available [facility] [employer] [facility] [address] [place], [address], 10/22/2023 12:26:20 12/16/19 21 elect rocar diogr am No observ ation record ed. [id number] Z_[facility] [address] , [place], [address], 09/06/2022 15:14:02 11/11/19 23 11/10/2022 MAMMO , scree rosa isela, digit al, bilat eral No observ ation record ed. [email or web address] [address], [place], [address], 12/27/2022 10:05:25 01/26/20 23 11/10/2022 mammo gram, follo w up* No observ ation record ed. [email or web address] [facility] [address], [place], [address], 01/29/2023 11:20:28 02/24/20 23 12/16/2022 MAMMO , diagn ostic , digit al, bilat eral No observ ation record ed. [email or web address] [address], [place], [address], 04/09/2023 08:00:12 04/06/20 23 04/06/2023 MAMMO , diagn ostic , bilat eral No observ ation record ed. [address], [place], [address], 10/16/2023 09:13:23 04/06/20 23 04/06/2023 MAMMO , diagn ostic , digit al, bilat eral No observ ation record ed. [address] [facility] [address], [place], [address], 10/16/2023 09:13:22 11/23/19 24 11/23/2023 MAMMO , diagn ostic , digit al, bilat eral No observ ation record ed. [facility] [address], [place], [address], 11/23/2023 17:24:07 11/23/19 24 11/23/2023 US, breas t, bilat eral No observ ation record ed. [facility] [address], [place], [address], 11/23/2023 17:24:08 Result Notes None recorded. 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 Not Available [facility] 3 15:13:02 Acute stress disorder 23567909 Active Not Available [facility] 3 15:13:02 Neck pain 53874221 Active Not Available [facility] 3 15:13:02 Mammography abnormal 490869388 Active 2022 Jaimie Rojas MD [address], [place] [address], [place], [address] , [employer] 3 10:02:00 Iron deficiency anemia 41031825 Active 2022 Jaimie Rojas MD [address], [place] [address], [place], [address] , [employer] 3 10:08:17 Hyperlipidemi a 27924500 Active 2022 Jaimie Rojsa MD [address], [place] [address], [place], [address] , [employer] 3 10:09:29 Fatigue 54530976 Active 2022 Jaimie Rojas MD [address], [address] , [employer] 3 10:15:04 Abdominal pain 92631872 Active 2022 Jaimie Rojas MD [address], [place] [address], [place], [address] , [employer] 3 10:29:21 Cough 86606214 Active 2022 Jaimie Rojas MD [address] [place] [address], [place], [address] , [employer] 3 14:33:27 Notes:Some problems listed i n Document: #[id number] could not be added to this patient's chart. Please review this document and add these problems to the patient's chart manually as needed. Problem Notes None recorded. Procedures Surgical History Date Name Laterality Status Provider Name and Address Organization Details Recorded Time delivery completed Not Available [facility] 09/06/2022 15:12:26 Orthopedic Surgery completed Not Available [facility] 09/06/2022 15:12:26 Imaging Results Imaging Date Name Status LastModified by Organization Details LastModified Time 12/15/2020 electrocardiogram completed MIGRATION. [id number] [id number] [address] , [place], [address], 09/06/2022 15:14:02 11/10/2022 MAMMO, screening, digital, bilateral completed [email or web address] [facility] [address], [place], [address], 12/27/2022 10:05:25 11/10/2022 mammogram, follow up* completed [facility] [address], [place], [address], 01/29/2023 11:20:28 12/16/2022 MAMMO, diagnostic, digital, bilateral completed [email or web address] [facility] [address], [place], [address], 04/09/2023 08:00:12 04/06/2023 MAMMO, diagnostic, bilateral completed [email or web address] [facility] [address], [place], [address], 10/16/2023 09:13:23 04/06/2023 MAMMO, diagnostic, digital, bilateral completed [email or web address] [facility] [address], [place], [address], 10/16/2023 09:13:22 11/23/2023 MAMMO, diagnostic, digital, bilateral completed SOL [facility] [address], [place], [address], 11/23/2023 17:24:07 11/23/2023 US, breast, bilateral completed SOL [facility] [address], [place], [address], 11/23/2023 17:24:08 Procedure Notes None recorded. Medical Equipment None Reported. Medications Name Sig Start Date Stop Date Status Note LastModified by Organization Details LastModified Time venlafaxine ER 37.5 mg capsule,ext ended release 24 hr TAKE 1 CAPSULE BY MOUTH ONCE DAILY active Not Available Not Available No t Available prednisone 10 mg tablet active Not Available Not Available Not Available venlafaxine ER 75 mg capsule,ext ended release 24 hr Take 1 capsule every day by oral route. active Not Available Not Available No t Available doxycycline hyclate 100 mg capsule TAKE 1 CAPSULE BY MOUTH TWICE DAILY FOR 7 DAYS 12/20 completed Not Available Not Available Not Available paroxetine 10 mg tablet TAKE 1 TABLET BY MOUTH EVERY DAY 06/29 completed Not Available Not Available Not Available azithromyci n 250 mg tablet TAKE 2 TABLETS (500 MG) BY ORAL ROUTE ONCE DAILY FOR 1 DAY THEN 1 TABLET (250 MG) BY ORAL ROUTE ONCE DAILY FOR 4 DAYS active Not Available Not Available No t Available benzonatate 200 mg capsule Take 1 capsule 3 times a day by oral route for 10 days. active Not Available Not Available No t Available valacyclovi r 1 gram tablet TK 1 T PO Q 12 H FOR 7 DAYS active Not Available Not Available No t Available fluconazole 200 mg tablet 02/09 completed Not Available Not Available Not Available prednisone 20 mg tablet Take 2 tablets by mouth once daily for 5 days 2023 active Not Available Not Available Not Avai lable Pocket Peak Flow Meter USE DIRECTED PER ASTHMA ACTION PLAN 04/02 completed Not Available Not Available Not Available acetaminoph en 300 mg-codeine 30 mg tablet 02/09 completed Not Available Not Available Not Available guaifenesin 100 mg/5 mL oral liquid active Not Available Not Available Not Available butalbital- acetaminoph en-caffeine 50 mg-325 mg-40 mg tablet 02/09 completed Not Available Not Available Not Available ondansetron 8 mg disintegrat ing tablet 02/25 completed Not Available Not Available Not Available lorazepam 0.5 mg tablet 1 tablet by mouth once daily active Not Available Not Available No t Available benzonatate 100 mg capsule TAKE 1 CAPSULE BY MOUTH THREE TIMES DAILY FOR 5 DAYS 12/20 completed Not Available Not Available Not Available guaiacol liquid active Not Available Not Available Not Available hydrocodone 7.5 mg-acetamin ophen 325 mg tablet active Not Available Not Available No t Available paroxetine 20 mg tablet TAKE 1 TABLET BY MOUTH ONCE DAILY active Not Available Not Available No t Available ferrous sulfate 325 mg (65 mg iron) tablet Take 1 tablet every day by oral route. 12/15 completed Not Available Not Available Not Available diclofenac sodium 75 mg tablet,vamshi yed release TAKE 1 TABLET BY MOUTH TWICE DAILY NEEDED FOR 10 DAYS active Not Available Not Available No t Available cephalexin 500 mg tablet Take 1 tablet twice a day by oral route for 7 days. 04/02 completed Not Available Not Available Not Available codeine 10 mg-guaifene sin 100 mg/5 mL oral liquid TAKE 5 TO 10 ML BY MOUTH EVERY 6 HOURS NEEDED FOR COUGH active Not Available Not Available No t Available ergocalcife rol (vitamin D2) 1,250 mcg (50,000 unit) capsule 02/09 completed Not Available Not Available Not Available lorazepam 1 mg tablet 02/09 completed Not Available Not Available Not Available ibuprofen 600 mg tablet 11/08 completed Not Available Not Available Not Available methylpredn isolone 4 mg tablets in a dose pack TAKE BY MOUTH DIRECTED ON INSIDE OF PACKAGE active Not Available Not Available No t Available albuterol sulfate HFA 90 mcg/actuati on aerosol inhaler active Not Available Not Available Not Available sertraline 50 mg tablet 04/02 completed Not Available Not Available Not Available amoxicillin 875 mg-potassiu m clavulanate 125 mg tablet TK 1 T PO Q 12 H FOR 3 DAYS 04/02 completed Not Available Not Available Not Available oxycodone 5 mg tablet 02/09 completed Not Available Not Available Not Available escitalopra m 10 mg tablet Take 1 tablet every day by oral route. active Not Available Not Available No t Available bupropion HCl XL 150 mg 24 hr tablet, extended release TAKE 1 TABLET BY MOUTH ONCE DAILY active Not Available Not Available No t Available TriNessa (28) 0.18 mg(7)/0.215 mg(7)/0.25 mg(7)-35 mcg tablet TAKE 1 TABLET BY ORAL ROUTE EVERY DAY 04/02 completed Not Available Not Available Not Available Flovent HFA 110 mcg/actuati on aerosol inhaler INHALE 2 PUFFS TWICE A DAY 04/02 completed Not Available Not Available Not Available M-M-R II (PF) 1,000-12,50 0 TCID50/0.5 mL subcutaneou s solution 05/31 completed Not Available Not Available Not Available Fluarix Quad (PF) 60 mcg (15 mcg x 4)/0.5 mL IM syringe TO BE ADMINISTE RED BY PHARMACIS T FOR IMMUNIZAT ION 05/31 completed Not Available Not Available Not Available Trintellix 20 mg tablet TAKE 1 TABLET BY MOUTH ONCE DAILY active Not Available Not Available No t Available fluticasone 113 mcg-salmete rol 14 mcg/actuati on breath activated powdr Inhale by inhalatio n route for 30 days. active Not Available Not Available No t Available Afluria Qd (36 mos up)(PF)60 mcg (15 mcg x4)/0.5 mL IM syringe ADM 0.5ML IM UTD active Not Available Not Available No t Available Afluria Qd (36 mos up)(PF)60 mcg (15 mcg x4)/0.5 mL IM syringe ADM 0.5ML IM UTD active Not Available Not Available No t Available Vitals Date Recorded Body mass index (BMI) Body height Oxygen saturation Oxygen saturation in Arterial blood by Pulse oximetry Heart rate Body temperature Body weight Systolic blood pressure Diastolic blood pressure Provider Name and Address Organization Details Last Updated DateTime 1 32.4 kg/m2 170.18 cm 96 % 96 % 78 /min 98.4 [degF] 61405.6 2 g 120 mm[Hg] 68 mm[Hg] Not Available [facility] 3 15:12:38 Date Recorded Oxygen saturation Oxygen saturation in Arterial blood by Pulse oximetry Heart rate Body temperature Body weight Systolic blood pressure Diastolic blood pressure Provider Name and Address Organization Details Last Updated DateTime 2 96 % 96 % 76 /min 98.1 [degF] 40658.6 2 g 124 mm[Hg] 78 mm[Hg] Not Available [facility] 3 15:12:38 Date Recorded Oxygen saturation Oxygen saturation in Arterial blood by Pulse oximetry Heart rate Body temperature Body weight Systolic blood pressure Diastolic blood pressure Provider Name and Address Organization Details Last Updated DateTime 2 98 % 98 % 82 /min 97.7 [degF] 37949.6 2 g 118 mm[Hg] 70 mm[Hg] Not Available [facility] 3 15:12:38 Date Recorded Body weight Body temperature Heart rate Oxygen saturation Oxygen saturation in Arterial blood by Pulse oximetry Systolic blood pressure Diastolic blood pressure Provider Name and Address Organization Details Last Updated DateTime 3 33089.0 3 g 97.6 [degF] 91 /min 98 % 98 % 122 mm[Hg] 80 mm[Hg] Wilfred Anand RN [facility] 3 09:49:52 Date Recorded Body weight Body temperature Heart rate Oxygen saturation Oxygen saturation in Arterial blood by Pulse oximetry Systolic blood pressure Diastolic blood pressure Provider Name and Address Organization Details Last Updated DateTime 4 06376.9 9 g 97.6 [degF] 92 /min 98 % 98 % 124 mm[Hg] 80 mm[Hg] Wilfred Anand RN [facility] [employer] [facility] 4 09:10:15 Social History Question Answer Notes LastModified by Organizat ion Details LastModified Time Tobacco Smoking Status Never Smoker Not Available [facility] 09/06/2022 15:12:24 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 12/20/2021 [id number] Information not available 09/06/2022 Sex: Unknown Functional Status None recorded. Mental Status None recorded. Family History Relationship Description Onset Age of this Age Resolved Age Notes LastModified by Organization Details LastModified Time Father Cerebrovascu lar accident [id number] Not available 09/06/2022 15:12:27 Father Myocardial infarction [id number] Not available 09/06/2022 15:12:27 Father Crohn's disease [id number] Not available 09/06/2022 15:12:27 Paternal Uncle Crohn's disease [id number] Not available 09/06/2022 15:12:27 Paternal Grandmother Crohn's disease [id number] Not available 09/06/2022 15:12:27 Notes:maternal GF AL late 40 s Medical History No medical history recorded. Gynecological HistoryNo gynecological history recorded. Obstetrics History GPAL:G 0 P 0 0 0 0 Immunizations Vaccine Type Date Status Note Provider Nam e and Address Organization Details Recorded Time COVID-19, mRNA, LNP-S, PF, 30 mcg/0.3 mL dose 1 completed Not Available [facility] 09/06/2022 15:13:56 SARS-COV-2 (COVID-19) vaccine, UNSPECIFIED 1 completed Not Available [facility] 09/06/2022 15:13:56 SARS-COV-2 (COVID-19) vaccine, UNSPECIFIED 0 completed Not Available [facility] 09/06/2022 15:13:56 Influenza, split virus, quadrivalent, preservative 7 completed Not Available [facility] 09/06/2022 15:13:56 Influenza, split virus, quadrivalent, PF 4 completed Not Available [facility] 09/06/2022 15:13:56 Tdap 4 completed Not Available [facility] 09/06/2022 15:13:56 Influenza, split virus, quadrivalent, PF 8 completed Not Available [facility] 09/06/2022 15:13:56 Influenza, live, quadrivalent, intranasal 3 completed Not Available [facility] 09/06/2022 15:13:56 Past Encounters Encounter ID Performer Location Encounter Start Date Encounter Closed Date Diagnosis/Indication Diagnosis SNOMED-CT Code Diagnosis ICD10 Code Diagnosis Note [id number] [facility] Primary [facility] [place] [address] [facility] [address] [place] [address] 12/15/2020 00:00:00 01/04/2021 17:13:37 [id number] [facility] Primary [facility] [place] [address] [facility] [address] [place] [address] 12/20/2021 00:00:00 01/05/2022 10:32:39 [id number] [facility] Primary [facility] [place] [address] [facility] [address] [place] [address] 02/01/2022 00:00:00 02/03/2022 10:36:59 [id number] Jaimie Rojas MD [facility] Primary Care [place] [address] [facility] [facility] [address] [address] [place] [address] 12/27/2022 09:45:42 12/27/2022 11:07:31 Adult health examination 217616039 Z00.00 Z13.1 Mammogram done, needs diagnostic and US breastChec k labscovid vaccine per cdc guidelines flu vaccine yearlycolo n cancer screen age 44pap today Mammography abnormal 168 816932 R92.8 Iron defic iency anemia 61034627 D50.9 Vitamin D deficiency 347 61532 E55.9 Hyperlipidemia 93499224 E78.5 Z79.899 Fatigue 35872016 R53.83 R73.9 Abdominal pain 34022454 R10.9 [id number] Jaimie Rojas MD [facility] Primary Care [facility] [address] [place] [address] 10/16/2023 09:01:13 10/16/2023 09:42:45 Mammography abnormal 927121289 R92.8 Iron defic iency anemia 19970263 D50.9 Vitamin D deficiency 347 20658 E55.9 Hyperlipidemia 37361454 E78.5 Z79.899 Fatigue 73276235 R53.83 R73.9 Health Concerns Section Related Observation LastModified by Organization Detai ls LastModified Time None Recorded Concern Status LastModified by Organization Details LastModified Time None Recorded Advance Directives Directive None Recorded Payers Encounter Date Sequence Insurance Name Policy Number Policy Langley Covered Member ID Langley Member ID Guarantor Name 12/27/2022 1 [facility] [id number] Lon Morataya [id number] Jaimie Sanford 10/16/2023 1 [facility] ([facility]) [id number] Amari Morataya [id number] Jaimie Sanford Notes Date Note Type Note Provider Name and Address Organization Details Recorded Time 12/27/2022 text/html here for wellnesssleep is betterbut still fatigued-has to take naps on days she is offso exhausted after work dayfeels refreshed in AM Jaimie Rojas MD [address] [place] [address], [place], [address], [facility] [employer] 01/05/2023 09:42:20 10/16/2023 text/html taking tyrosine which helps her energy having hot flashes, night sweats, low energy, irritability Jaimie Rojas MD [address] [place] [address], [place], [address], [facility] [employer] [facility] 11/26/2023 15:13:37 OBGyn Episode No OBEpisode recorded.
--- OUTSIDE RECORDS SUMMARY | 2024-10-08 10:43 | XMS_ITS | Clinical Summary ---
Author Organization [facility] Address [address] [facility], [place] [address] Phone Care Team Providers Care Strategic Communications Manager Name Role Phone Jaimie Rojas MD Primary Care Provider + Allergies No known active allergies Medications Cholecalciferol (VITAMIN D PO) Take by mouth. Active Vit-Fe Fumarate-FA ( VITAMIN PO) Take by mouth. Active THEANINE PO Take by mouth. Active Family History Medical History Relation Name Comments Crohn's Disease Father Crohn's Disease Paternal Grandmother Crohn's Disease Paternal Uncle Relation Name Status Comments Father Paternal Grandmother Paternal Uncle Social History Tobacco Use Types Packs/Day Years Used Date Smoking Tobacco: Never Smokeless Tobacco: Never Alcohol Use Standard Drinks/Week Comments Not Currently 0 (1 standard drink = 0.6 oz pur e alcohol) Comments Unknown Sex and Gender Information Value Date Recorded Sex Assigned at Not on file Legal Sex Female 8:27 AM CDT Gender Identity Not on file Sexual Orientation Not on file Last Filed Vital Signs Vital Sign Reading Time Taken Comments Blood Pressure 132/80 03/04/2019 10:28 AM CDT Pulse 75 03/04/2019 10:28 AM CDT Temperature 37.4 C (99.4 F) 03/04/2019 10:28 AM CDT Respiratory Rate 16 03/04/2019 10:28 AM CDT Oxygen Saturation 98% 03/04/2019 10:28 AM CDT Inhaled Oxygen Concentration - - Weight 83.5 kg (184 lb 1.6 oz) 03/04/2019 10:28 AM CDT Height 170.2 cm (5' 7 ) 03/04/2019 10:28 AM CDT Body Mass Index 28.83 03/04/2019 10:28 AM CDT Plan of Treatment Health Maintenance Due Date Last Done Comments Hepatitis C Virus (HCV) Screening 1979 Hepatitis B Immunization (1 of 3 - 19+ 3-dose series) 1998 Colonoscopy 2024 Colorectal Cancer Screening 2024 Influenza Immunization (#1) 2024 09/0 02/2020, 05/12/2019, 04/02/2018, Additional history exists SARS-COV-2 Immunization ( season) 2024 05/14/2021, 10/01/2020, 08/29/2020 Respiratory Syncytial Virus (RSV) Immunization (Adult) (1 - 1-dose 75+ series) 2054 DTaP/Tdap/Td Immunization Discontinued 05/05/2014 TdaP Immunization Completed 05/05/2014 Meningococcal Immunization (ACWY) Aged Out No longer eligible based on patient's age to complete this topic Pneumococcal Immunization Combined Aged Out No longer eligible based on patient's age to complete this topic Rotavirus Immunization Aged Out No lo nger eligible based on patient's age to complete this topic Insurance [facility] Care Teams Strategic Communications Manager Relationship Specialty Start Date End Date Jaimie Rojas MD [address] [place] [id number] PCP - General Family Medicine 03/04/19
--- OUTSIDE RECORDS SUMMARY | 2024-10-08 10:43 | XMS_ITS | Clinical Summary ---
Author Organization [facility] Address [address] [place] [address] Care Team Providers Care Video System Repairer Name Role Phone José Paul MD Primary Care Provider Social History Tobacco Use Types Packs/Day Years Used Date Smoking Tobacco: Never Assessed Comments Unknown Sex and Gender Information Value Date Recorded Sex Assigned at Not on file Legal Sex Female 11:12 PM CDT Gender Identity Not on file Sexual Orientation Not on file Last Filed Vital Signs Vital Sign Reading Time Taken Comments Blood Pressure 118/73 06/18/2016 10:40 AM ROBOT OPERATOR Pulse 102 06/18/2016 10:40 AM ROBOT OPERATOR Temperature - - Respiratory Rate - - Oxygen Saturation - - Inhaled Oxygen Concentration - - Weight 81.6 kg (180 lb) 06/18/2016 10:40 AM ROBOT OPERATOR Height 170.2 cm (5' 7 ) 06/18/2016 10:40 AM ROBOT OPERATOR Body Mass Index 28.19 06/18/2016 10:40 AM ROBOT OPERATOR Plan of Treatment Health Maintenance Due Date Last Done Comments Cervical Cancer Screening Pap Smear (Age 30 to 64) Every 3 Years 1979 Colorectal Cancer Screening Colonoscopy (10 Years) 1979 Annual Physical 1982 Hepatitis C 1997 Hepatitis B Vaccines (1 of 3 - 19+ 3-dose series) 1998 Cervical Cancer Screening Pap with HPV Testing (Age 30 to 64) Every 5 Years 2009 Cervical Cancer Screening with HPV 2009 Mammogram Screening 2019 COVID-19 Vaccine ( season) 2024 05/14/2021, 10/01/2020, 10/01/2020, Additional history exists DTaP, Tdap and Td Vaccines (3 - Td or Tdap) 04/25/2026 04/25/2016, 05/05/2014 HPV Vaccines Aged Out No longer eligi ble based on patient's age to complete this topic Meningococcal B Vaccine Aged Out No l onger eligible based on patient's age to complete this topic Meningococcal Vaccine Aged Out No hever jose eligible based on patient's age to complete this topic Pneumococcal Vaccine: Pediatrics (0 to 5 Years) and At-Risk Patients (6 to 64 Years) Aged Out No longer eligible based on patient's age to complete this topic RSV Immunizations Under 20 Months Aged Out No longer eligible based on patient's age to complete this topic Care Teams Video System Repairer Relationship Specialty Start Date End Date José Paul MD [address] [place] [address] DR ELIZABETH [address] [place] [phone] PCP - General FAMILY PRACTICE 01/12/24
== END 2024-10-08 09:48 | disposition home or self-care (01) ==
PROVIDERS: PCP Family Medicine; Visit Provider Family Medicine
DX: Z12.31 Encounter for screening mammogram for malignant neoplasm of breast (principal); R92.8 Other abnormal and inconclusive findings on diagnostic imaging of breast
CPT/HCPCS: 77063; 77067

== ENCOUNTER 2024-10-31 08:53 | Outpatient (CLI) | payer OTHER, SELFPAY ==
--- NOTE | ~2024-10-31 | MMUS_ITS ---
EXAMINATION: MM diagnostic carie LT w chuy, US breast LT limited HISTORY: Follow-up left breast asymmetry TECHNIQUE: Additional 3-D tomosynthesis images of the left breast were performed and synthetic 2-D im ages were generated. CAD analysis was submitted and interpreted. High resolution Limited left breast ultrasound was performed. COMPARISON: Comparison to multiple prior studies sequentially, with oldest reviewed study dated 11/10. BREAST PARENCHYMAL COMPOSITION: Not dense: There are scattered areas of fibroglandular density. FINDINGS: MAMMOGRAPHIC FINDINGS: There are no suspicious masses, calcifications or architectural distortion in the left breast to sugg est malignancy. ULTRASOUND: Limited left breast ultrasound: Normal heterogeneous echotexture without focal solid or cystic mass IMPRESSION: 1. No evidence for malignancy in the left breast. 2. Routine yearly screening mammogram and regular clinical breast examination are recommended. BI-RADS Category 1: Negative Reviewed, dictated and finalized at location A. IMPRESSION: 1. No evidence for malignancy in the left breast. 2. Routine yearly screening mammogram and regular clinical breast examination a re recommended. BI-RADS Category 1: Negative
--- OUTSIDE RECORDS SUMMARY | 2024-10-31 09:08 | XMS_ITS | Clinical Summary ---
Author Organization [facility] Address [address] [facility] [place] [address] Phone Care Team Providers Care Photo Mask Pattern Generator Name Role Phone Jaimie Rojas MD Primary [...] patient's age to complete this topic Insurance [facility] Care Teams Photo Mask Pattern Generator Relationship Specialty Start Date End Date Jaimie Rojas MD [address] [place] [phone] PCP - General Family Medicine 03/04/19
--- OUTSIDE RECORDS SUMMARY | 2024-10-31 09:08 | XMS_ITS | Data Portability ---
Author Organization [facility], Main Office Address [address] [place] [address] Assessment Encounter Date Assessment Date Assessment LastModified [...] 12:26:09 hepatic function panel, serum 2023 024 SLO Not available 4 12:26:13 TSH, serum or [...] 10:51:00 glycohemogl obin, total, blood 2022 023 [facility] ([facility] [address] [place], [address], 3 10:38:34 T4, free, serum 2022 023 [...] recorded. Imaging US, breast, bilateral 2023 024 [email or web address] [address] [facility], [address], [place], [address], 4 09:24:59 MAMMO, diagnostic, digital, bilateral 2023 024 [email or web address] [address] [facility], [address], [place], [address], 4 09:24:59 US, abdomen - rule out gallstone *Please call patient to schedule* 2022 023 [email or web address] [address] [facility], [address], [place], [address], 3 08:54:37 MAMMO, diagnostic, digital, bilateral - *Please call patient to schedule* 2022 023 [email or web address] [address] [facility], [address], [place], [address], 3 08:53:52 US, breast, bilateral - *Please call patient to schedule* 2022 023 [email or web address] [address] [facility], [address], [place], [address], 3 08:54:13 Medication Orders None recorded. Patient [...] cteri stics have been deter mined by [employer]. It has not been clear ed or appro chaim by the [place] Food and Drug Admin istra tion. This assay has been valid ated pursu ant to the CLIA regul ation and is used for Clini robb purpo ses. MDF med fusio n [address] [facility] [address] [place] [address] [phone] Braulio dempsey MD See Note 1 Note 1 For addit ional infor melanie marie e refer to http: //[facility] farzana jain.Que stDia gnost ics.c om/fa q/FAQ [...] Third trime ster 0.43- 2.91 Not Available [address], [address], 12/23/2021 13:28:07 12/21/19 22 12/23/2021 T4, FREE T4, free 1.0 NG/dL 0.8-1. 8 normal Not Available [address], [address], 12/23/2021 13:28:06 12/21/19 22 12/23/2021 HARRISON TIN ferritin 13 NG/mL 16-232 low Not Available [address], [address], 12/23/2021 13:28:06 12/21/19 22 12/23/2021 CBC (INCL UDES DIFF/ PLT) white blood cell count 8.7 thous and/u L 3.8-10 .8 normal Not Available [address], [address], 12/23/2021 13:28:05 12/21/19 22 12/23/2021 CBC (INCL UDES DIFF/ PLT) red blood cell count 4.69 santino on/uL 3.80-5 .10 normal Not Available [address], [address], 12/23/2021 13:28:05 12/21/19 22 12/23/2021 CBC (INCL UDES DIFF/ PLT) hemoglobin 12.7 g/dL 11.7-1 5.5 normal Not Available [address], [address], 12/23/2021 13:28:05 12/21/19 22 12/23/2021 CBC (INCL UDES DIFF/ PLT) hematocrit 39.9 % 35.0-4 5.0 normal Not Available [address], [address], 12/23/2021 13:28:05 12/21/19 22 12/23/2021 CBC (INCL UDES DIFF/ PLT) MCV 85.1 fL 80.0-1 00.0 normal Not Available [address], [address], 12/23/2021 13:28:05 12/21/19 22 12/23/2021 CBC (INCL UDES DIFF/ PLT) MCH 27.1 pg 27.0-3 3.0 normal Not Available [address], [address], 12/23/2021 13:28:05 12/21/19 22 12/23/2021 CBC (INCL UDES DIFF/ PLT) MCHC 31.8 g/dL 32.0-3 6.0 low Not Available [address], [address], 12/23/2021 13:28:05 12/21/19 22 12/23/2021 CBC (INCL UDES DIFF/ PLT) RDW 13.3 % 11.0-1 5.0 normal Not Available [address], [address], 12/23/2021 13:28:05 12/21/19 22 12/23/2021 CBC (INCL UDES DIFF/ PLT) platelet count 404 thous and/u L 140-40 0 high Not Available [address], [address], 12/23/2021 13:28:05 12/21/19 22 12/23/2021 CBC (INCL UDES DIFF/ PLT) MPV 9.5 fL 7.5-12 .5 normal Not Available [address], [address], 12/23/2021 13:28:05 12/21/19 22 12/23/2021 CBC (INCL UDES DIFF/ PLT) absolute neutrophils 5003 cells /uL 1500-7 800 normal Not Available [address], [address], 12/23/2021 13:28:05 12/21/19 22 12/23/2021 CBC (INCL UDES DIFF/ PLT) absolute lymphocytes 2932 cells /uL 850-39 00 normal Not Available [address], [address], 12/23/2021 13:28:05 12/21/19 22 12/23/2021 CBC (INCL UDES DIFF/ PLT) absolute monocytes 626 cells /uL 200-95 0 normal Not Available [address], [address], 12/23/2021 13:28:05 12/21/19 22 12/23/2021 CBC (INCL UDES DIFF/ PLT) absolute eosinophils 78 cells /uL 15-500 normal Not Available [address], [address], 12/23/2021 13:28:05 12/21/19 22 12/23/2021 CBC (INCL UDES DIFF/ PLT) absolute basophils 61 cells /uL 0-200 normal Not Available [address], [address], 12/23/2021 13:28:05 12/21/19 22 12/23/2021 CBC (INCL UDES DIFF/ PLT) neutrophils 57.5 % normal Not Available [address], [address], 12/23/2021 13:28:05 12/21/19 22 12/23/2021 CBC (INCL UDES DIFF/ PLT) lymphocytes 33.7 % normal Not Available [address], [address], 12/23/2021 13:28:05 12/21/19 22 12/23/2021 CBC (INCL UDES DIFF/ PLT) monocytes 7.2 % normal Not Available [address], [address], 12/23/2021 13:28:05 12/21/19 22 12/23/2021 CBC (INCL UDES DIFF/ PLT) eosinophils 0.9 % normal Not Available [address], [address], 12/23/2021 13:28:05 12/21/19 22 12/23/2021 CBC (INCL UDES DIFF/ PLT) basophils 0.7 % normal Not Available [address], [address], 12/23/2021 13:28:05 12/21/19 22 12/23/2021 HEPAT IC FUNCT ION PANEL protein, total 7.0 g/dL 6.1-8. 1 normal Not Available [address], [address], 12/23/2021 13:28:04 12/21/19 22 12/23/2021 HEPAT IC FUNCT ION PANEL albumin 4.2 g/dL 3.6-5. 1 normal Not Available [address], [address], 12/23/2021 13:28:04 12/21/19 22 12/23/2021 HEPAT IC FUNCT ION PANEL globulin 2.8 g/dL_ (calc ) 1.9-3. 7 normal Not Available [address], [address], 12/23/2021 13:28:04 12/21/19 22 12/23/2021 HEPAT IC FUNCT ION PANEL albumin/glob ulin ratio 1.5 (calc ) 1.0-2. 5 normal Not Available [address], [address], 12/23/2021 13:28:04 12/21/19 22 12/23/2021 HEPAT IC FUNCT ION PANEL bilirubin, total 0.4 mg/dL 0.2-1. 2 normal Not Available [address] [address] [place], [address], 12/23/2021 13:28:04 12/21/19 22 12/23/2021 HEPAT IC FUNCT ION PANEL bilirubin, direct 0.1 mg/dL < or = 0.2 normal Not Available [address], [address], 12/23/2021 13:28:04 12/21/19 22 12/23/2021 HEPAT IC FUNCT ION PANEL bilirubin, indirect 0.3 mg/dL _(robb c) 0.2-1. 2 normal Not Available [address], [address], 12/23/2021 13:28:04 12/21/19 22 12/23/2021 HEPAT IC FUNCT ION PANEL alkaline phosphatase 80 U/L 31-125 normal Not Available [address] [address] [place], [address], 12/23/2021 13:28:04 12/21/19 22 12/23/2021 HEPAT IC FUNCT ION PANEL AST 24 U/L 10-30 normal Not Available [address], [address], 12/23/2021 13:28:04 12/21/19 22 12/23/2021 HEPAT IC FUNCT ION PANEL ALT 22 U/L 6-29 normal Not Available [address], [address], 12/23/2021 13:28:04 12/21/19 22 12/23/2021 BASIC METAB OLIC PANEL glucose 85 mg/dL 65-99 normal Fasti ng refer ence inter moise Not Available [address], [address], 12/23/2021 13:28:04 12/21/19 22 12/23/2021 BASIC METAB OLIC PANEL urea nitrogen (BUN) 8 mg/dL 7-25 normal Not Available [address], [address], 12/23/2021 13:28:04 12/21/19 22 12/23/2021 BASIC METAB OLIC PANEL creatinine 0.70 mg/dL 0.50-1 .10 normal Not Available [address], [address], 12/23/2021 13:28:04 12/21/19 22 12/23/2021 BASIC METAB OLIC PANEL eGFR non-afr. malawian 107 mL/mi n/1.7 3m2 > or = 60 normal Not Available [address], [address], 12/23/2021 13:28:04 12/21/19 22 12/23/2021 BASIC METAB OLIC PANEL eGFR 124 mL/mi n/1.7 3m2 > or = 60 normal Not Available [address], [address], 12/23/2021 13:28:04 12/21/19 22 12/23/2021 BASIC METAB OLIC PANEL BUN/creatini ne ratio not applic able (calc ) 6-22 Not Available [address], [address], 12/23/2021 13:28:04 12/21/19 22 12/23/2021 BASIC METAB OLIC PANEL sodium 137 mmol/ L 135-14 6 normal Not Available [address], [address], 12/23/2021 13:28:04 12/21/19 22 12/23/2021 BASIC METAB OLIC PANEL potassium 4.7 mmol/ L 3.5-5. 3 normal Not Available [address], [address], 12/23/2021 13:28:04 12/21/19 22 12/23/2021 BASIC METAB OLIC PANEL chloride 106 mmol/ L 98-110 normal Not Available [address], [address], 12/23/2021 13:28:04 12/21/19 22 12/23/2021 BASIC METAB OLIC PANEL carbon dioxide 27 mmol/ L 20-32 normal Not Available [address], [address], 12/23/2021 13:28:04 12/21/19 22 12/23/2021 BASIC METAB OLIC PANEL calcium 9.7 mg/dL 8.6-10 .2 normal Not Available [address], [address], 12/23/2021 13:28:04 12/21/19 22 12/23/2021 IRON AND TOTAL IRON MADYSON NG CAPAC ITY iron, total 55 mcg/d L 40-190 normal Not Available [address], [address], 12/23/2021 13:28:03 12/21/19 22 12/23/2021 IRON AND TOTAL IRON MADYSON NG CAPAC ITY iron binding capacity 348 mcg/d L_(ca lc) 250-45 0 normal Not Available [address], [address], 12/23/2021 13:28:03 12/21/19 22 12/23/2021 IRON AND TOTAL IRON MADYSON NG CAPAC ITY % saturation 16 %_(ca lc) 16-45 normal Not Available [address], [address], 12/23/2021 13:28:03 12/21/19 22 12/23/2021 LIPID PANEL , STAND GAYLE cholesterol, total 170 mg/dL <200 normal Not Available [address], [address], 12/23/2021 13:28:02 12/21/19 22 12/23/2021 LIPID PANEL , STAND GAYLE HDL cholesterol 58 mg/dL > or = 50 normal Not Available [address], [address], 12/23/2021 13:28:02 12/21/19 22 12/23/2021 LIPID PANEL , STAND GAYLE triglyceride s 166 mg/dL <150 high Not Available [address], [address], 12/23/2021 13:28:02 12/21/19 22 12/23/2021 LIPID PANEL [...] agnos tics. com/f aq/FA Q164) Not Available [address] [place], [address], 12/23/2021 13:28:02 12/21/19 22 12/23/2021 LIPID PANEL , STAND GAYLE chol/HDLC ratio 2.9 (calc ) <5.0 normal Not Available [address] [address] [place], [address], 12/23/2021 13:28:02 12/21/19 22 12/23/2021 LIPID PANEL , STAND GAYLE non HDL cholesterol 112 mg/dL _(robb c) <130 normal For patie nts with diabe chase plus 1 major ASCVD risk facto r, treat ing to a non-H DL-C goal of <100 mg/dL (LDL- C of <70 mg/dL ) is jair santana optio n. Not Available [address], [address], 12/23/2021 13:28:02 12/28/19 23 12/28/2022 LIPID PANEL , STAND GAYLE cholesterol, total 160 mg/dL <200 normal Not Available [address] [place], [address], 12/28/2022 10:50:54 12/28/19 23 12/28/2022 LIPID PANEL , STAND GAYLE HDL cholesterol 51 mg/dL > or = 50 normal Not Available [address], [address], 12/28/2022 10:50:54 12/28/19 23 12/28/2022 LIPID PANEL , STAND GAYLE triglyceride s 170 mg/dL <150 high Not Available [address], [address], 12/28/2022 10:50:54 12/28/19 23 12/28/2022 LIPID PANEL [...] 9): 2061- 2068 (http ://ed ucati on.Qu estZ-good. com/f aq/FA Q164) Not Available [facility] [address] [address] [place], [address], 12/28/2022 10:50:54 12/28/19 23 12/28/2022 LIPID PANEL , STAND GAYLE chol/HDLC ratio 3.1 (calc ) <5.0 normal Not Available [facility] [address] [address] [place], [address], 12/28/2022 10:50:54 12/28/19 23 12/28/2022 LIPID PANEL , STAND GAYLE non HDL cholesterol 109 mg/dL _(robb c) <130 normal For patie nts with diabe chase plus 1 major ASCVD risk facto r, treat ing to a non-H DL-C goal of <100 mg/dL (LDL- C of <70 mg/dL ) is consi abelino a thera pediaz c optio n. Not Available [facility] [address] [address] [place], [address], 12/28/2022 10:50:54 12/28/19 23 12/28/2022 IRON AND TOTAL IRON MADYSON NG CAPAC ITY iron, total 56 mcg/d L 40-190 normal Not Available [facility] [address] [address] [place], [address], 12/28/2022 10:50:56 12/28/19 23 12/28/2022 IRON AND TOTAL IRON MADYSON NG CAPAC ITY iron binding capacity 358 mcg/d L_(ca lc) 250-45 0 normal Not Available [address], [address], 12/28/2022 10:50:56 12/28/19 23 12/28/2022 IRON AND TOTAL IRON MADYSON NG CAPAC ITY % saturation 16 %_(ca lc) 16-45 normal Not Available [address], [address], 12/28/2022 10:50:56 12/28/19 23 12/28/2022 BASIC METAB OLIC PANEL glucose 81 mg/dL 65-99 normal Fasti ng refer ence inter moise Not Available [address], [address], 12/28/2022 10:50:56 12/28/19 23 12/28/2022 BASIC METAB OLIC PANEL urea nitrogen (BUN) 8 mg/dL 7-25 normal Not Available [address], [address], 12/28/2022 10:50:56 12/28/19 23 12/28/2022 BASIC METAB OLIC PANEL creatinine 0.70 mg/dL 0.50-0 .99 normal Not Available [address], [address], 12/28/2022 10:50:56 12/28/19 23 12/28/2022 BASIC METAB OLIC PANEL eGFR 110 mL/mi n/1.7 3m2 > or = 60 normal The eGFR is based on the CKD-E PI 2020 equat ion. To calcu late the new eGFR from a previ ous Creat inine or Cysta esdras C resul t, go to https ://kike chamorro.o jonathan/charlene youngblood s/ kdoqi /gfr% 5Fcal culat or Not Available [address], [address], 12/28/2022 10:50:56 12/28/19 23 12/28/2022 BASIC METAB OLIC PANEL BUN/creatini ne ratio NOT APPLIC ABLE (calc ) 6-22 Not Available [address], [address], 12/28/2022 10:50:56 12/28/19 23 12/28/2022 BASIC METAB OLIC PANEL sodium 138 mmol/ L 135-14 6 normal Not Available [address], [address], 12/28/2022 10:50:56 12/28/19 23 12/28/2022 BASIC METAB OLIC PANEL potassium 4.6 mmol/ L 3.5-5. 3 normal Not Available [address], [address], 12/28/2022 10:50:56 12/28/19 23 12/28/2022 BASIC METAB OLIC PANEL chloride 102 mmol/ L 98-110 normal Not Available [address], [address], 12/28/2022 10:50:56 12/28/19 23 12/28/2022 BASIC METAB OLIC PANEL carbon dioxide 28 mmol/ L 20-32 normal Not Available [address], [address], 12/28/2022 10:50:56 12/28/19 23 12/28/2022 BASIC METAB OLIC PANEL calcium 9.7 mg/dL 8.6-10 .2 normal Not Available [address], [address], 12/28/2022 10:50:56 12/28/19 23 12/28/2022 HEPAT IC FUNCT ION PANEL protein, total 7.6 g/dL 6.1-8. 1 normal Not Available [address], [address], 12/28/2022 10:50:57 12/28/19 23 12/28/2022 HEPAT IC FUNCT ION PANEL albumin 4.5 g/dL 3.6-5. 1 normal Not Available [address], [address], 12/28/2022 10:50:57 12/28/19 23 12/28/2022 HEPAT IC FUNCT ION PANEL globulin 3.1 g/dL_ (calc ) 1.9-3. 7 normal Not Available [address], [address], 12/28/2022 10:50:57 12/28/19 23 12/28/2022 HEPAT IC FUNCT ION PANEL albumin/glob ulin ratio 1.5 (calc ) 1.0-2. 5 normal Not Available [address], [address], 12/28/2022 10:50:57 12/28/19 23 12/28/2022 HEPAT IC FUNCT ION PANEL bilirubin, total 0.5 mg/dL 0.2-1. 2 normal Not Available [address], [address], 12/28/2022 10:50:57 12/28/19 23 12/28/2022 HEPAT IC FUNCT ION PANEL bilirubin, direct 0.1 mg/dL < or = 0.2 normal Not Available [address], [address], 12/28/2022 10:50:57 12/28/19 23 12/28/2022 HEPAT IC FUNCT ION PANEL bilirubin, indirect 0.4 mg/dL _(robb c) 0.2-1. 2 normal Not Available [address], [address], 12/28/2022 10:50:57 12/28/19 23 12/28/2022 HEPAT IC FUNCT ION PANEL alkaline phosphatase 78 U/L 31-125 normal Not Available [facility] [employer] [address] [address] [place], [address], 12/28/2022 10:50:57 12/28/19 23 12/28/2022 HEPAT IC FUNCT ION PANEL AST 23 U/L 10-30 normal Not Available [address], [address], 12/28/2022 10:50:57 12/28/19 23 12/28/2022 HEPAT IC FUNCT ION PANEL ALT 21 U/L 6-29 normal Not Available [address], [address], 12/28/2022 10:50:57 12/28/19 23 12/28/2022 CBC (INCL UDES DIFF/ PLT) white blood cell count 9.6 thous and/u L 3.8-10 .8 normal Not Available [address], [address], 12/28/2022 10:50:58 12/28/19 23 12/28/2022 CBC (INCL UDES DIFF/ PLT) red blood cell count 4.97 santino on/uL 3.80-5 .10 normal Not Available [address], [address], 12/28/2022 10:50:58 12/28/19 23 12/28/2022 CBC (INCL UDES DIFF/ PLT) hemoglobin 13.7 g/dL 11.7-1 5.5 normal Not Available [address], [address], 12/28/2022 10:50:58 12/28/19 23 12/28/2022 CBC (INCL UDES DIFF/ PLT) hematocrit 41.7 % 35.0-4 5.0 normal Not Available [employer] [address], [address], 12/28/2022 10:50:58 12/28/19 23 12/28/2022 CBC (INCL UDES DIFF/ PLT) MCV 83.9 fL 80.0-1 00.0 normal Not Available [address], [address], 12/28/2022 10:50:58 12/28/19 23 12/28/2022 CBC (INCL UDES DIFF/ PLT) MCH 27.6 pg 27.0-3 3.0 normal Not Available [address], [address], 12/28/2022 10:50:58 12/28/19 23 12/28/2022 CBC (INCL UDES DIFF/ PLT) MCHC 32.9 g/dL 32.0-3 6.0 normal Not Available [address], [address], 12/28/2022 10:50:58 12/28/19 23 12/28/2022 CBC (INCL UDES DIFF/ PLT) RDW 13.0 % 11.0-1 5.0 normal Not Available [address], [address], 12/28/2022 10:50:58 12/28/19 23 12/28/2022 CBC (INCL UDES DIFF/ PLT) platelet count 434 thous and/u L 140-40 0 high Not Available [address], [address], 12/28/2022 10:50:58 12/28/19 23 12/28/2022 CBC (INCL UDES DIFF/ PLT) MPV 9.5 fL 7.5-12 .5 normal Not Available [address], [address], 12/28/2022 10:50:58 12/28/19 23 12/28/2022 CBC (INCL UDES DIFF/ PLT) absolute neutrophils 6240 cells /uL 1500-7 800 normal Not Available [address], [address], 12/28/2022 10:50:58 12/28/19 23 12/28/2022 CBC (INCL UDES DIFF/ PLT) absolute lymphocytes 2650 cells /uL 850-39 00 normal Not Available [address] [place], [address], 12/28/2022 10:50:58 12/28/19 23 12/28/2022 CBC (INCL UDES DIFF/ PLT) absolute monocytes 605 cells /uL 200-95 0 normal Not Available [address], [address], 12/28/2022 10:50:58 12/28/19 23 12/28/2022 CBC (INCL UDES DIFF/ PLT) absolute eosinophils 48 cells /uL 15-500 normal Not Available [address], [address], 12/28/2022 10:50:58 12/28/19 23 12/28/2022 CBC (INCL UDES DIFF/ PLT) absolute basophils 58 cells /uL 0-200 normal Not Available [address], [address], 12/28/2022 10:50:58 12/28/19 23 12/28/2022 CBC (INCL UDES DIFF/ PLT) neutrophils 65 % normal Not Available [address], [address], 12/28/2022 10:50:58 12/28/19 23 12/28/2022 CBC (INCL UDES DIFF/ PLT) lymphocytes 27.6 % normal Not Available [address] [place], [address], 12/28/2022 10:50:58 12/28/19 23 12/28/2022 CBC (INCL UDES DIFF/ PLT) monocytes 6.3 % normal Not Available [address], [address], 12/28/2022 10:50:58 12/28/19 23 12/28/2022 CBC (INCL UDES DIFF/ PLT) eosinophils 0.5 % normal Not Available [address], [address], 12/28/2022 10:50:58 12/28/19 23 12/28/2022 CBC (INCL UDES DIFF/ PLT) basophils 0.6 % normal Not Available [address], [address], 12/28/2022 10:50:58 12/28/19 23 12/28/2022 HARRISON TIN ferritin 12 NG/mL 16-232 low Not Available [address], [address], 12/28/2022 10:50:59 12/28/19 23 12/28/2022 T4, FREE T4, free 1.0 NG/dL 0.8-1. 8 normal Not Available [address], [address], 12/28/2022 10:51:00 12/28/19 23 12/28/2022 TSH TSH 1.18 mIU/L normal Refer ence Range > or = 20 Years 0.40- 4.50 Pregn jasen Range s First trime ster 0.26- 2.66 Secon d trime ster 0.55- 2.73 Third trime ster 0.43- 2.91 Not Available [address], [address], 12/28/2022 10:51:00 12/28/19 23 12/28/2022 VITAM IN [...] /MS is recom shirley d: order code 40673 (flip ents >2yrs ). See Note 1 Note 1 For addit ional infor melanie marie e refer to http: //[facility] farzana Uriarte stDia gnost ics.c om/fa q/FAQ 199 (This link is being provi ded for infor cari valenzuela/ educjoselyn schneider purpo ses only. ) Not Available [facility] [address] [place], [address], 12/28/2022 10:51:01 12/28/19 23 12/28/2022 HEMOG LOBIN [...] Care in Diabe chase(A DA). Not Available [facility] (Lab) [address] [place], [address], 12/28/2022 10:51:02 10/19/19 24 10/22/2023 LIPID PANEL , STAND GAYLE cholesterol, total 168 mg/dL <200 normal Not Available [employer] [address] [address] [place], [address], 10/22/2023 12:26:09 10/19/19 24 10/22/2023 LIPID PANEL , STAND GAYLE HDL cholesterol 52 mg/dL > or = 50 normal Not Available [facility] [address] [address] [place], [address], 10/22/2023 12:26:09 10/19/19 24 10/22/2023 LIPID PANEL , STAND GAYLE triglyceride s 114 mg/dL <150 normal Not Available [facility] [address] [address] [place], [address], 10/22/2023 12:26:09 10/19/19 24 10/22/2023 LIPID PANEL [...] 2061- 2068 (http ://ed ucati on.Qu estDi DIY Geniuss. com/f aq/FA Q164) Not Available [facility] [address] [place], [address], 10/22/2023 12:26:09 10/19/19 24 10/22/2023 LIPID PANEL , STAND GAYLE chol/HDLC ratio 3.2 (calc ) <5.0 normal Not Available [address], [address], 10/22/2023 12:26:09 10/19/19 24 10/22/2023 LIPID PANEL , STAND GAYLE non HDL cholesterol 116 mg/dL _(robb c) <130 normal For patie nts with diabe chase plus 1 major ASCVD risk facto r, treat ing to a non-H DL-C goal of <100 mg/dL (LDL- C of <70 mg/dL ) is consene santana optio n. Not Available [address] [place], [address], 10/22/2023 12:26:09 10/19/19 24 10/22/2023 THYRO ID PEROX IDASE AND THYRO GLOBU JEWELL ANTIB ODIES thyroglobuli n antibodies <1 IU/mL < or = 1 Not Available [address] [address] [place], [address], 10/22/2023 12:26:10 10/19/19 24 10/22/2023 THYRO ID PEROX IDASE AND THYRO GLOBU JEWELL ANTIB ODIES thyroid peroxidase antibodies <1 IU/mL <9 Not Available [address] [address] [place], [address], 10/22/2023 12:26:10 10/19/19 24 10/22/2023 IRON AND TOTAL IRON MADYSON NG CAPAC ITY iron, total 73 mcg/d L 40-190 normal Not Available [address], [address], 10/22/2023 12:26:11 10/19/19 24 10/22/2023 IRON AND TOTAL IRON MADYSON NG CAPAC ITY iron binding capacity 331 mcg/d L_(ca lc) 250-45 0 normal Not Available [address], [address], 10/22/2023 12:26:11 10/19/19 24 10/22/2023 IRON AND TOTAL IRON MADYSON NG CAPAC ITY % saturation 22 %_(ca lc) 16-45 normal Not Available [address], [address], 10/22/2023 12:26:11 10/19/19 24 10/22/2023 BASIC METAB OLIC PANEL glucose 86 mg/dL 65-99 normal Fasti ng refer ence inter moise Not Available [address], [address], 10/22/2023 12:26:12 10/19/19 24 10/22/2023 BASIC METAB OLIC PANEL urea nitrogen (BUN) 11 mg/dL 7-25 normal Not Available [address], [address], 10/22/2023 12:26:12 10/19/19 24 10/22/2023 BASIC METAB OLIC PANEL creatinine 0.60 mg/dL 0.50-0 .99 normal Not Available [address], [address], 10/22/2023 12:26:12 10/19/19 24 10/22/2023 BASIC METAB OLIC PANEL eGFR 113 mL/mi n/1.7 3m2 > or = 60 normal Not Available [address], [address], 10/22/2023 12:26:12 10/19/19 24 10/22/2023 BASIC METAB OLIC PANEL BUN/creatini ne ratio SEE NOTE: (calc ) 6-22 Not Repor jimbo: BUN and Creat inine are withi n refer ence range . Not Available [address], [address], 10/22/2023 12:26:12 10/19/19 24 10/22/2023 BASIC METAB OLIC PANEL sodium 137 mmol/ L 135-14 6 normal Not Available [address], [address], 10/22/2023 12:26:12 10/19/19 24 10/22/2023 BASIC METAB OLIC PANEL potassium 4.6 mmol/ L 3.5-5. 3 normal Not Available [address], [address], 10/22/2023 12:26:12 10/19/19 24 10/22/2023 BASIC METAB OLIC PANEL chloride 104 mmol/ L 98-110 normal Not Available [address], [address], 10/22/2023 12:26:12 10/19/19 24 10/22/2023 BASIC METAB OLIC PANEL carbon dioxide 27 mmol/ L 20-32 normal Not Available [address], [address], 10/22/2023 12:26:12 10/19/19 24 10/22/2023 BASIC METAB OLIC PANEL calcium 9.5 mg/dL 8.6-10 .2 normal Not Available [address], [address], 10/22/2023 12:26:12 10/19/19 24 10/22/2023 HEPAT IC FUNCT ION PANEL protein, total 7.3 g/dL 6.1-8. 1 normal Not Available [address], [address], 10/22/2023 12:26:13 10/19/19 24 10/22/2023 HEPAT IC FUNCT ION PANEL albumin 4.5 g/dL 3.6-5. 1 normal Not Available [address], [address], 10/22/2023 12:26:13 10/19/19 24 10/22/2023 HEPAT IC FUNCT ION PANEL globulin 2.8 g/dL_ (calc ) 1.9-3. 7 normal Not Available [address], [address], 10/22/2023 12:26:13 10/19/19 24 10/22/2023 HEPAT IC FUNCT ION PANEL albumin/glob ulin ratio 1.6 (calc ) 1.0-2. 5 normal Not Available [address], [address], 10/22/2023 12:26:13 10/19/19 24 10/22/2023 HEPAT IC FUNCT ION PANEL bilirubin, total 0.5 mg/dL 0.2-1. 2 normal Not Available [address], [address], 10/22/2023 12:26:13 10/19/19 24 10/22/2023 HEPAT IC FUNCT ION PANEL bilirubin, direct 0.1 mg/dL < or = 0.2 normal Not Available [address] [address], [address], 10/22/2023 12:26:13 10/19/19 24 10/22/2023 HEPAT IC FUNCT ION PANEL bilirubin, indirect 0.4 mg/dL _(robb c) 0.2-1. 2 normal Not Available [address], [address], 10/22/2023 12:26:13 10/19/19 24 10/22/2023 HEPAT IC FUNCT ION PANEL alkaline phosphatase 77 U/L 31-125 normal Not Available [facility] [employer] [address], [address], 10/22/2023 12:26:13 10/19/19 24 10/22/2023 HEPAT IC FUNCT ION PANEL AST 21 U/L 10-30 normal Not Available [address], [address], 10/22/2023 12:26:13 10/19/19 24 10/22/2023 HEPAT IC FUNCT ION PANEL ALT 20 U/L 6-29 normal Not Available [address], [address], 10/22/2023 12:26:13 10/19/19 24 10/22/2023 CBC (INCL UDES DIFF/ PLT) white blood cell count 7.8 thous and/u L 3.8-10 .8 normal Not Available [address], [address], 10/22/2023 12:26:14 10/19/19 24 10/22/2023 CBC (INCL UDES DIFF/ PLT) red blood cell count 4.78 santino on/uL 3.80-5 .10 normal Not Available [address], [address], 10/22/2023 12:26:14 10/19/19 24 10/22/2023 CBC (INCL UDES DIFF/ PLT) hemoglobin 13.2 g/dL 11.7-1 5.5 normal Not Available [address], [address], 10/22/2023 12:26:14 10/19/19 24 10/22/2023 CBC (INCL UDES DIFF/ PLT) hematocrit 41.1 % 35.0-4 5.0 normal Not Available [address], [address], 10/22/2023 12:26:14 10/19/19 24 10/22/2023 CBC (INCL UDES DIFF/ PLT) MCV 86.0 fL 80.0-1 00.0 normal Not Available [address], [address], 10/22/2023 12:26:14 10/19/19 24 10/22/2023 CBC (INCL UDES DIFF/ PLT) MCH 27.6 pg 27.0-3 3.0 normal Not Available [address], [address], 10/22/2023 12:26:14 10/19/19 24 10/22/2023 CBC (INCL UDES DIFF/ PLT) MCHC 32.1 g/dL 32.0-3 6.0 normal Not Available [address], [address], 10/22/2023 12:26:14 10/19/19 24 10/22/2023 CBC (INCL UDES DIFF/ PLT) RDW 12.6 % 11.0-1 5.0 normal Not Available [address], [address], 10/22/2023 12:26:14 10/19/19 24 10/22/2023 CBC (INCL UDES DIFF/ PLT) platelet count 401 thous and/u L 140-40 0 high Not Available [address], [address], 10/22/2023 12:26:14 10/19/19 24 10/22/2023 CBC (INCL UDES DIFF/ PLT) MPV 9.4 fL 7.5-12 .5 normal Not Available [address], [address], 10/22/2023 12:26:14 10/19/19 24 10/22/2023 CBC (INCL UDES DIFF/ PLT) absolute neutrophils 4828 cells /uL 1500-7 800 normal Not Available [address], [address], 10/22/2023 12:26:14 10/19/19 24 10/22/2023 CBC (INCL UDES DIFF/ PLT) absolute lymphocytes 2379 cells /uL 850-39 00 normal Not Available [address], [address], 10/22/2023 12:26:14 10/19/19 24 10/22/2023 CBC (INCL UDES DIFF/ PLT) absolute monocytes 468 cells /uL 200-95 0 normal Not Available [address], [address], 10/22/2023 12:26:14 10/19/19 24 10/22/2023 CBC (INCL UDES DIFF/ PLT) absolute eosinophils 78 cells /uL 15-500 normal Not Available [address], [address], 10/22/2023 12:26:14 10/19/19 24 10/22/2023 CBC (INCL UDES DIFF/ PLT) absolute basophils 47 cells /uL 0-200 normal Not Available [address], [address], 10/22/2023 12:26:14 10/19/19 24 10/22/2023 CBC (INCL UDES DIFF/ PLT) neutrophils 61.9 % normal Not Available [address], [address], 10/22/2023 12:26:14 10/19/19 24 10/22/2023 CBC (INCL UDES DIFF/ PLT) lymphocytes 30.5 % normal Not Available [address], [address], 10/22/2023 12:26:14 10/19/19 24 10/22/2023 CBC (INCL UDES DIFF/ PLT) monocytes 6.0 % normal Not Available [address], [address], 10/22/2023 12:26:14 10/19/19 24 10/22/2023 CBC (INCL UDES DIFF/ PLT) eosinophils 1.0 % normal Not Available [address], [address], 10/22/2023 12:26:14 10/19/19 24 10/22/2023 CBC (INCL UDES DIFF/ PLT) basophils 0.6 % normal Not Available [facility] [address], [address], 10/22/2023 12:26:14 10/19/19 24 10/22/2023 HARRISON TIN ferritin 20 NG/mL 16-232 normal Not Available [facility] [address], [address], 10/22/2023 12:26:16 10/19/19 24 10/22/2023 T4, FREE T4, free 0.9 NG/dL 0.8-1. 8 normal Not Available [address], [address], 10/22/2023 12:26:17 10/19/1910/22/2023 TSH TSH 0.94 mIU/L normal Refer ence Range > or = 20 Years 0.40- 4.50 Pregn jasen Range s First trime ster 0.26- 2.66 Secon d trime ster 0.55- 2.73 Third trime ster 0.43- 2.91 Not Available [address], [address], 10/22/2023 12:26:18 10/19/1910/22/2023 VITAM IN D,25- [place],TO [...] /MS is recom shirley d: order code 03660 (flip ents >2yrs ). See Note 1 Note 1 For addit ional infor melanie marie refer to http: //[facility] farzana Uriarte stDia gnost ics.c om/fa q/FAQ 199 (This link is being provi ded for infor cari valenzuela/ educa leonides l purpo ses only. ) Not Available [employer] [facility] [address] , [place], [address], 10/22/2023 12:26:19 10/19/19 24 10/22/2023 HEMOG LOBIN [...] is not recom shirley d. Not Available [facility] [address] [place], [address], 10/22/2023 12:26:20 12/16/19 21 elect rocar diogr am No observ ation record ed. [id number] [facility] [address] , [place], [address], 09/06/2022 15:14:02 11/11/19 23 11/10/2022 MAMMO , scree rosa isela, digit al, bilat eral No observ ation record ed. [email or web address] [address], [place], [address], 12/27/2022 10:05:25 01/26/20 23 11/10/2022 mammo gram, follo w up* No observ ation record ed. [email or web address] [facility] [address], [place], [address], 01/29/2023 11:20:28 02/24/20 23 12/16/2022 MAMMO , diagn ostic , digit al, bilat eral No observ ation record ed. [email or web address] [address], [place], [address], 04/09/2023 08:00:12 04/06/20 23 04/06/2023 MAMMO , diagn ostic , bilat eral No observ ation record ed. [address], [place], [address], 10/16/2023 09:13:23 04/06/20 23 04/06/2023 MAMMO , diagn ostic , digit al, bilat eral No observ ation record ed. [address] [facility] [address], [place], [address], 10/16/2023 09:13:22 11/23/19 24 11/23/2023 MAMMO , diagn ostic , digit al, bilat eral No observ ation record ed. [facility] [address], [place], [address], 11/23/2023 17:24:07 11/23/19 24 11/23/2023 US, breas t, bilat eral No observ ation record ed. [facility] [address], [place], [address], 11/23/2023 17:24:08 Result Notes None recorded. 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 Not Available [facility] 3 15:13:02 Acute stress disorder 36135573 Active Not Available [facility] 3 15:13:02 Neck pain 43462991 Active Not Available [facility] 3 15:13:02 Mammography abnormal 871090440 Active 2022 Jaimie Rojas MD [address], [place] [address], [place], [address] , [employer] 3 10:02:00 Iron deficiency anemia 92914719 Active 2022 Jaimie Rojas MD [address], [place] [address], [place], [address] , [employer] [facility] 3 10:08:17 Hyperlipidemi a 67170788 Active 2022 Jaimie Rojas MD [address], [place] [address], [place], [address] , [employer] 3 10:09:29 Fatigue 43010381 Active 2022 Jaimie Rojas MD [address], [address] , [employer] 3 10:15:04 Abdominal pain 11622675 Active 2022 Jaimie Rojas MD [address], [place] [address], [place], [address] , [employer] 3 10:29:21 Cough 53092462 Active 2022 Jaimie Rojas MD [address] [place] [address], [place], [address] , [employer] 3 14:33:27 Notes:Some problems listed i n Document: #[id number] could not be added to this patient's chart. Please review this document and add these problems to the patient's chart manually as needed. Problem Notes None recorded. Procedures Surgical History Date Name Laterality Status Provider Name and Address Organization Details Recorded Time delivery completed Not Available [facility] 09/06/2022 15:12:26 Orthopedic Surgery completed Not Available [facility] 09/06/2022 15:12:26 Imaging Results Imaging Date Name Status LastModified by Organization Details LastModified Time 12/15/2020 electrocardiogram completed [id number]. [id number] [facility] [address] , [place], [address], 09/06/2022 15:14:02 11/10/2022 MAMMO, screening, digital, bilateral completed [email or web address] [facility] [address], [place], [address], 12/27/2022 10:05:25 11/10/2022 mammogram, follow up* completed [email or web address] [facility] [address], [place], [address], 01/29/2023 11:20:28 12/16/2022 MAMMO, diagnostic, digital, bilateral completed [email or web address] [facility] [address], [place], [address], 04/09/2023 08:00:12 04/06/2023 MAMMO, diagnostic, bilateral completed [email or web address] [facility] [address], [place], [address], 10/16/2023 09:13:23 04/06/2023 MAMMO, diagnostic, digital, bilateral completed [email or web address] [facility] [address], [place], [address], 10/16/2023 09:13:22 11/23/2023 MAMMO, diagnostic, digital, bilateral completed SOL [facility] [address], [place], [address], 11/23/2023 17:24:07 11/23/2023 US, breast, bilateral completed SOL [facility] [address], [place], [address], 11/23/2023 17:24:08 Procedure Notes None recorded. Medical [...] % 96 % 78 /min 98.4 [degF] 40870.6 2 g 120 mm[Hg] 68 mm[Hg] Not Available [facility] 3 15:12:38 Date Recorded Oxygen saturation Oxygen saturation in Arterial blood by Pulse oximetry Heart rate Body temperature Body weight Systolic blood pressure Diastolic blood pressure Provider Name and Address Organization Details Last Updated DateTime 2 96 % 96 % 76 /min 98.1 [degF] 31885.6 2 g 124 mm[Hg] 78 mm[Hg] Not Available [facility] 3 15:12:38 Date Recorded Oxygen saturation Oxygen saturation in Arterial blood by Pulse oximetry Heart rate Body temperature Body weight Systolic blood pressure Diastolic blood pressure Provider Name and Address Organization Details Last Updated DateTime 2 98 % 98 % 82 /min 97.7 [degF] 97807.6 2 g 118 mm[Hg] 70 mm[Hg] Not Available [facility] 3 15:12:38 Date Recorded Body weight Body temperature Heart rate Oxygen saturation Oxygen saturation in Arterial blood by Pulse oximetry Systolic blood pressure Diastolic blood pressure Provider Name and Address Organization Details Last Updated DateTime 3 45476.0 3 g 97.6 [degF] 91 /min 98 % 98 % 122 mm[Hg] 80 mm[Hg] Wilfred Anand RN [facility] [employer] [facility] 3 09:49:52 Date Recorded Body weight Body temperature Heart rate Oxygen saturation Oxygen saturation in Arterial blood by Pulse oximetry Systolic blood pressure Diastolic blood pressure Provider Name and Address Organization Details Last Updated DateTime 4 69260.9 9 g 97.6 [degF] 92 /min 98 % 98 % 124 mm[Hg] 80 mm[Hg] Wilfred Anand RN [facility] [employer] [facility] 4 09:10:15 Social History Question Answer Notes LastModified by Organizat ion Details LastModified Time Tobacco Smoking Status Never Smoker Not Available [facility] 09/06/2022 15:12:24 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 12/20/2021 [id number] Information not available 09/06/2022 Sex: Unknown Functional Status None recorded. Mental Status None recorded. Family History Relationship Description Onset Age of this Age Resolved Age Notes LastModified by Organization Details LastModified Time Father Cerebrovascu lar accident [id number] Not available 09/06/2022 15:12:27 Father Myocardial infarction [id number] Not available 09/06/2022 15:12:27 Father Crohn's disease [id number].908 [id number] Not available 09/06/2022 15:12:27 Paternal Uncle Crohn's disease [id number] Not available 09/06/2022 15:12:27 Paternal Grandmother Crohn's disease [id number] Not available 09/06/2022 15:12:27 Notes:maternal GF MT late 40 s Medical History No medical history recorded. Gynecological HistoryNo gynecological history recorded. Obstetrics History GPAL:G 0 P 0 0 0 0 Immunizations Vaccine Type Date Status Note Provider Nam e and Address Organization Details Recorded Time COVID-19, mRNA, LNP-S, PF, 30 mcg/0.3 mL dose 1 completed Not Available [facility] 09/06/2022 15:13:56 SARS-COV-2 (COVID-19) vaccine, UNSPECIFIED 1 completed Not Available [facility] 09/06/2022 15:13:56 SARS-COV-2 (COVID-19) vaccine, UNSPECIFIED 0 completed Not Available [facility] 09/06/2022 15:13:56 Influenza, split virus, quadrivalent, preservative 7 completed Not Available [facility] 09/06/2022 15:13:56 Influenza, split virus, quadrivalent, PF 4 completed Not Available [facility] 09/06/2022 15:13:56 Tdap 4 completed Not Available [facility] 09/06/2022 15:13:56 Influenza, split virus, quadrivalent, PF 8 completed Not Available [facility] 09/06/2022 15:13:56 Influenza, live, quadrivalent, intranasal 3 completed Not Available [facility] 09/06/2022 15:13:56 Past Encounters Encounter ID Performer Location Encounter Start Date Encounter Closed Date Diagnosis/Indication Diagnosis SNOMED-CT Code Diagnosis ICD10 Code Diagnosis Note [id number] [facility] Primary [facility] [place] [address] [facility] [address] [place] [address] 12/15/2020 00:00:00 01/04/2021 17:13:37 [id number] [facility] Primary [facility] [place] [address] [facility] [address] [place] [address] 12/20/2021 00:00:00 01/05/2022 10:32:39 [id number] [facility] Primary [facility] [place] [address] [facility] [address] [place] [address] 02/01/2022 00:00:00 02/03/2022 10:36:59 [id number] Jaimie Rojas MD [facility] Primary [facility] [place] [address] [facility] [address] [place] [address] 12/27/2022 09:45:42 12/27/2022 11:07:31 Adult health examination 790716857 Z00.00 Z13.1 Mammogram done, needs diagnostic and US breastChec k labscovid vaccine per cdc guidelines flu vaccine yearlycolo n cancer screen age 44pap today Mammography abnormal 168 953447 R92.8 Iron defic iency anemia 85862083 D50.9 Vitamin D deficiency 347 78676 E55.9 Hyperlipidemia 78766148 E78.5 Z79.899 Fatigue 80435640 R53.83 R73.9 Abdominal pain 57756482 R10.9 [id number] Jaimie Rojas MD [facility] Primary Care [facility] [address] [facility] [address] [place] [address] 10/16/2023 09:01:13 10/16/2023 09:42:45 Mammography abnormal 622608584 R92.8 Iron defic iency anemia 15126849 D50.9 Vitamin D deficiency 347 51382 E55.9 Hyperlipidemia 51760118 E78.5 Z79.899 Fatigue 32942953 R53.83 R73.9 Health Concerns Section Related Observation LastModified by Organization Detai ls LastModified Time None Recorded Concern Status LastModified by Organization Details LastModified Time None Recorded Advance Directives Directive None Recorded Payers Encounter Date Sequence Insurance Name Policy Number Policy Langley Covered Member ID Langley Member ID Guarantor Name 12/27/2022 1 [facility] [id number] Lon Morataya [id number] Jaimie Sanford 10/16/2023 1 [facility] [id number] Amari Morataya [id number] Jaimie Sanford Notes Date Note Type Note Provider Name and Address Organization Details Recorded Time 12/27/2022 text/html here for wellnesssleep is betterbut still fatigued-has to take naps on days she is offso exhausted after work dayfeels refreshed in AM Jaimie Rojas MD [address] [facility], [place] [address], [place], [address], [facility] [employer] 01/05/2023 09:42:20 10/16/2023 text/html taking tyrosine which helps her energy having hot flashes, night sweats, low energy, irritability Jaimie Rojas MD [address] [facility], [place] [address], [place], [address], [facility] [employer] [facility] 11/26/2023 15:13:37 OBGyn Episode No OBEpisode recorded.
--- OUTSIDE RECORDS SUMMARY | 2024-10-31 09:08 | XMS_ITS | Clinical Summary ---
Author Organization [facility] Address [address] [place] [address] Care Team Providers Care Byproducts Supervisor Name Role Phone José Paul MD Primary [...] Comments Blood Pressure 118/73 06/18/2016 10:40 AM [facility] Pulse 102 06/18/2016 10:40 AM [facility] Temperature - - Respiratory Rate - - Oxygen Saturation - - Inhaled Oxygen Concentration - - Weight 81.6 kg (180 lb) 06/18/2016 10:40 AM [facility] Height 170.2 cm (5' 7 ) 06/18/2016 10:40 AM [facility] Body Mass Index 28.19 06/18/2016 10:40 AM [facility] Plan of Treatment Health Maintenance Due Date [...] 5 Years) and At-Risk Patients (6 to 49 Years) Aged Out No longer eligible based on patient's age to complete this topic RSV Immunizations Under 20 Months Aged Out No longer eligible based on patient's age to complete this topic Care Teams Byproducts Supervisor Relationship Specialty Start Date End Date José Paul MD [address] [place] [address] DR ELIZABETH [address] [place] [id number] PCP - General FAMILY PRACTICE 01/12/24
== END 2024-10-31 08:54 | disposition home or self-care (01) ==
LOC: CHSIMG 08:58
PROVIDERS: PCP Family Medicine; Visit Provider Family Medicine
DX: R92.8 Other abnormal and inconclusive findings on diagnostic imaging of breast (principal)
CPT/HCPCS: 76642; 77061; 77065; G0279

== ENCOUNTER 2025-06-19 09:50 | Outpatient (CLI) | payer OTHER, SELFPAY ==
--- NOTE | ~2025-06-19 | US_ITS ---
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 Findings: Uterus: Uterus anteverted 7.8 x 4.7 x 3 cm. . Endometrium measures 8 mm, there is no increased flow. Right Ovary:Right ovary not identified. Left Ovary: Left ovary not identified. Free Fluid: None Impression: 1. No etiology to explain the patient's symptoms Reviewed, dictated and finalized at location P. CCO DRYING MACHINE OPERATOR Impression: 1. No etiology to explain the patient's symptoms
== END 2025-06-19 09:51 | disposition home or self-care (01) ==
PROVIDERS: PCP Family Medicine; Visit Provider Family Medicine
DX: N94.6 Dysmenorrhea, unspecified (principal)
CPT/HCPCS: 76856